=== PATIENT | female | born 1980 | race Caucasian/White ===

== ENCOUNTER 2020-11-25 13:00 | Emergency (ER) | payer OTHER, MEDICAID, SELFPAY ==
[2020-11-25] VITALS (9 sets, daily range): BP systolic 117–162; BP diastolic 66–113; PULSE 91–126; RESP 12–36; O2SAT 95–98; BMI 22.8
--- NOTE | 2020-11-25 13:12 | DI.RAD.S_ITS ---
PROCEDURE: XR CHEST 1V INDICATIONS: chest pain TECHNIQUE: One view of the chest was acquired. COMPARISON: None. FINDINGS: Surgical changes and devices: None. Lungs and pleura: On this semiupright portable chest examination, no large pneumothorax or large pleural effusions are seen. No focal infiltrates are seen. Mediastinum: Mediastinal contours appear normal. Heart size is normal. Bones and chest wall: No suspicious bony lesions. Overlying soft tissues appear unremarkable. IMPRESSION: Portable chest within normal limits. Dictated by: Mike De León M.D. on 11/25/2020 at 13:08 Approved by: Mike De León M.D. on 11/25/2020 at 13:09
--- NOTE | 2020-11-25 13:24 | ED_ITS ---
HPI - Chest Pain General Chief Complaint: Chest Pain Stated Complaint: Chest Pain/SOB/Back Pain Time Seen by Provider: 11/25/20 13:14 Source: patient Mode of arrival: Ambulatory Limitations: no limitations History of Present Illness HPI narrative: Patient is a 40-year-old female with no off known medical history presenting with ongoing shortness of breath fatigue and back pain. She says actually started back in August she thought she was on her menses and having a bad migraine and nausea however it has progressed to where she feels short of breath all the time at rest and with exertion she has some back pain as well. She feels overly run down and fatigued. She denies any cough. If she has no known history of blood clots she has not traveled anywhere. She had a Implanon implanted in October thinking that that may help her symptoms. She says it has just been ongoing and she does not feel well. She is noted to be hypertensive and tachycardic. MD complaint: chest pain Onset (ago): month(s) Pain location: left chest Quality: heaviness Exacerbating factors: exertion Related Data Previous Rx's Medication Instructions Recorded levothyroxine 75 mcg PO DAILY #30 cap 11/25/20 Allergies Allergy/AdvReac Type Severity Reaction Status Date / Time sulfamethoxazole Allergy Severe Anaphylaxis Verified 11/25/20 13:09 [From Bactrim] trimethoprim [From Bactrim] Allergy Severe Anaphylaxis Verified 11/25/20 13:09 Review of Systems Review of Systems ROS Unobtainable: All systems reviewed & are unremarkable except as noted in HPI and below Constitutional Constitutional: Denies chills, Reports fatigue, Denies fever(s) and Denies frequent falls ENT Ears, Nose, Mouth, and Throat: Denies change in voice, Denies vertigo, Denies dizziness, Denies neck pain and Denies sore throat Cardiovascular Cardiovascular: Reports chest pain, Reports rapid heart rate, Reports dyspnea and Reports dyspnea on exertion Respiratory Respiratory: Reports as per HPI, Reports dyspnea and Reports dyspnea on exertion Gastrointestinal Gastrointestinal: Denies abdominal pain, Denies change in bowel habits, Denies diarrhea, Denies nausea and Denies vomiting Genitourinary Genitourinary: Denies urinary hesitancy, Denies urinary incontinence and Denies urinary urgency Genitourinary: Denies urinary incontinence, Denies urinary hesitancy and Denies urinary urgency Musculoskeletal Musculoskeletal: Denies back pain and Denies neck pain Integumentary/Breasts Skin/Breast: Denies pruritus, Denies erythema, Denies rash and Denies wounds Neurologic Neurologic: Denies vertigo, Denies dizziness and Denies frequent falls Endocrine Endocrine: Reports fatigue Patient History Medical History Patient denies medical problems Social History Smoking Status: Former smoker Smoking Status: Former smoker alcohol intake frequency: 0-2 drinks per day Substance Use Type: does not use Exam Initial Vital Signs Initial Vital Signs: Vital Signs Pulse Rate 126 H 11/25/20 13:05 Respiratory Rate 24 11/25/20 13:05 Blood Pressure 162/113 H 11/25/20 13:05 Pulse Oximetry 95 11/25/20 13:05 GENERAL: Well-appearing, well-nourished and in no acute distress. HEENT: Head atraumatic,EOMI, pupils reactive, face symmetric, moist mucous membranes CARDIOVASCULAR: Tachycardic regular no murmur RESPIRATORY: Breath sounds equal bilaterally, no wheezes rales or rhonchi. ABDOMEN: Soft, nontender. Normoactive bowel sounds all 4 quadrants. No guarding or rebound. EXTREMITIES: Normal range of motion, no clubbing or edema. Neurovascularly intact NEUROLOGICAL: Alert and oriented x4.Normal gait and speech. Cranial nerves II through XII grossly intact. SKIN: Warm, dry, no laceration, no petechiae, no rashes or lesions. Course Orders Ordered: ED Orders 11/25/20 13:12 XR chest 1V Stat 11/25/20 13:14 EKG-12 Lead Stat 11/25/20 13:24 COVID19 Stat Complete Blood Count AUTO DIFF Stat Comprehensive Metabolic Panel Stat Free T4, Direct Thyroxine Stat Lipase Stat Magnesium Stat Partial Thromboplastin Time Stat Prothrombin Time INR Stat TSH w/ Reflex to FT4 Stat Troponin & CK Cardiac Panel Stat 11/25/20 14:15 CT angio chest PE protocol Stat Discontinued Medications Sodium Chloride (Normal Saline 0.9%) 1,000 mls @ 1,000 mls/hr IV BOLUS ONE Stop: 11/25/20 15:14 Last Infusion: 11/25/20 15:24 Dose: 0 mls/hr Documented by: Admin: 11/25/20 14:20 Dose: 1,000 mls/hr Documented by: PIERO Vital Signs Vital signs: Vital Signs - 8 hr 11/25/20 13:05 11/25/20 13:26 11/25/20 13:29 Pulse Rate 126 H 103 H 120 H Respiratory Rate 24 36 H Blood Pressure 162/113 H 138/66 Pulse Oximetry 95 95 97 11/25/20 13:30 11/25/20 14:00 11/25/20 14:30 Pulse Rate 100 H 110 H 91 H Respiratory Rate 12 26 H Blood Pressure 142/71 H Pulse Oximetry 97 98 97 11/25/20 14:57 11/25/20 15:00 11/25/20 15:30 Pulse Rate 104 H 98 H 98 H Respiratory Rate 23 18 17 Blood Pressure 126/77 123/78 117/69 Pulse Oximetry 96 96 95 MDM - Chest Pain Lab Data Attestation: I reviewed the patient's lab results. Result diagrams: 11/25/20 13:24 11/25/20 13:24 Labs: Lab Results 11/25/20 11/25/20 11/25/20 Range/Units 13:24 13:24 13:24 WBC 7.1 (4.5-11.0) X10^3/uL RBC 4.73 (4.0-5.2) X10^6/uL Hgb 14.8 (12.0-16.0) g/dL Hct 44.7 (36-46) % MCV 94.6 (80-100) fL MCH 31.3 (26-34) PG MCHC 33.1 (30-36) % RDW 13.3 (11.6-14.8) % Plt Count 270 (150-400) X10^3/uL Neut % (Auto) 40.6 L (50-75) % Lymph % (Auto) 41.3 H (25-40) % [place] % (Auto) 8.3 (3-14) % Eos % (Auto) 9.1 H (2-4) % Baso % (Auto) 0.7 (0-2) % Neut # (Auto) 2900 (8917-1568) /uL Lymph # (Auto) 2900 (2926-7880) /uL [place] # (Auto) 600 (0-900) /uL Eos # (Auto) 600 H (0-450) /uL Baso # (Auto) 0 (0-100) /uL PT 11.7 (10.1-12.7) SECONDS INR 1.0 (0.9-1.3) APTT 34 (26.4-36.2) SECONDS Sodium 140 (137-145) mmol/L Potassium 4.0 (3.4-5.1) mmol/L Chloride 106 (98-107) mmol/L Carbon Dioxide 18 L (22-32) mmol/L BUN 8 (7-17) mg/dL Creatinine 0.50 L (0.52-1.04) mg/dL Estimated GFR > 60.0 (>60) mL/min BUN/Creatinine Ratio 16.0 (6-22) Glucose 81 (70-100) mg/dL Calcium 9.0 (8.4-10.2) mg/dL Magnesium 2.1 (1.6-2.3) mg/dL Total Bilirubin 0.7 (0.2-1.3) mg/dL AST 103 H (14-36) IU/L ALT 93 H (<35) IU/L Alkaline Phosphatase 60 (38-126) U/L Total Creatine Kinase 82 (30-135) U/L CK-MB (CK-2) TNP CK-MB (CK-2) Rel Index TNP Troponin I < 0.012 (0.01-0.034) ng/mL Total Protein 8.1 (6.3-8.2) g/dL Albumin 5.1 H (3.5-5.0) g/dL Globulin 3.0 (1.7-4.1) g/dL Albumin/Globulin Ratio 1.7 (1.0-2.8) Lipase 169 (23-300) U/L TSH (0.47-4.68) uIU/mL Free T4 (0.78-2.19) ng/dL SARS-CoV-2 (PCR) (Negative) 11/25/20 11/25/20 Range/Units 13:24 13:24 WBC (4.5-11.0) X10^3/uL RBC (4.0-5.2) X10^6/uL Hgb (12.0-16.0) g/dL Hct (36-46) % MCV (80-100) fL MCH (26-34) PG MCHC (30-36) % RDW (11.6-14.8) % Plt Count (150-400) X10^3/uL Neut % (Auto) (50-75) % Lymph % (Auto) (25-40) % [place] % (Auto) (3-14) % Eos % (Auto) (2-4) % Baso % (Auto) (0-2) % Neut # (Auto) (3479-7719) /uL Lymph # (Auto) (9586-4673) /uL [place] # (Auto) (0-900) /uL Eos # (Auto) (0-450) /uL Baso # (Auto) (0-100) /uL PT (10.1-12.7) SECONDS INR (0.9-1.3) APTT (26.4-36.2) SECONDS Sodium (137-145) mmol/L Potassium (3.4-5.1) mmol/L Chloride (98-107) mmol/L Carbon Dioxide (22-32) mmol/L BUN (7-17) mg/dL Creatinine (0.52-1.04) mg/dL Estimated GFR (>60) mL/min BUN/Creatinine Ratio (6-22) Glucose (70-100) mg/dL Calcium (8.4-10.2) mg/dL Magnesium (1.6-2.3) mg/dL Total Bilirubin (0.2-1.3) mg/dL AST (14-36) IU/L ALT (<35) IU/L Alkaline Phosphatase (38-126) U/L Total Creatine Kinase (30-135) U/L CK-MB (CK-2) CK-MB (CK-2) Rel Index Troponin I (0.01-0.034) ng/mL Total Protein (6.3-8.2) g/dL Albumin (3.5-5.0) g/dL Globulin (1.7-4.1) g/dL Albumin/Globulin Ratio (1.0-2.8) Lipase (23-300) U/L TSH 5.09 H (0.47-4.68) uIU/mL Free T4 1.00 (0.78-2.19) ng/dL SARS-CoV-2 (PCR) Negative (Negative) Point of Care Testing Test Results Negative Urine Dip Bedside Urine Glucose Negative Bedside Urine Bilirubin - Negative Bedside Urine Ketone - Negative Urine Specific [place] 1.010 Bedside Urine Occult Blood - Negative Bedside Urine pH 6.0 Bedside Urine Protein - Negative Bedside Urine Urobilinogen - Negative Bedside Urine Nitrite - Negative Bedside Urine Leukocytes - Negative Esterase Imaging Data Chest x-ray: Radiologist's Impression: PROCEDURE: XR CHEST 1V INDICATIONS: chest pain TECHNIQUE: One view of the chest was acquired. COMPARISON: None. FINDINGS: Surgical changes and devices: None. Lungs and pleura: On this semiupright portable chest examination, no large pneumothorax or large pleural effusions are seen. No focal infiltrates are seen. Mediastinum: Mediastinal contours appear normal. Heart size is normal. Bones and chest wall: No suspicious bony lesions. Overlying soft tissues appear unremarkable. IMPRESSION: Portable chest within normal limits. Dictated by: Mike De León M.D. on 11/25/2020 at 13:08 CT scan - chest: Radiologist's Impression: PROCEDURE: CT ANGIO CHEST PE PROTOCOL INDICATIONS: short of breath tachycardic TECHNIQUE: After the administration of intravenous contrast, 2 mm thick sections acquired from the pulmonary apices to the posterior costophrenic angles. 3-dimensional maximum intensity projection (MIP) coronal and sagittal reformats were then acquired through the thorax. For radiation dose reduction, the following was used: automated exposure control, adjustment of mA and/or kV according to patient size. COMPARISON: [facility], , XR CHEST 1V, 11/25/2020, 13:57. FINDINGS: Image quality: Excellent. Pulmonary arteries: Pulmonary arteries are normal in size, and demonstrate no intraluminal filling defects to suggest central pulmonary embolism. Lungs and pleura: Lungs are clear. No pleural effusions or pneumothorax. Central and peripheral airways are patent. Mediastinum: Heart size is normal, without pericardial effusion. No mediastinal or hilar adenopathy. Thoracic aorta is normal in caliber and enhancement. No findings of dissection are seen. Esophagus is normal in caliber. There is a small hiatal hernia. Bones and chest wall: No suspicious bony lesions. Ribs and thoracic spine appear intact throughout. Thyroid gland demonstrates no significant abnormality. No axillary or supraclavicular adenopathy. Abdomen: Diffuse fatty liver infiltration is noted. Visualized upper abdominal solid organs otherwise appear normal in the early arterial phase of enhancement. IMPRESSION: Negative for pulmonary embolism. Thoracic aortic dissection cannot be seen. Incidental note is made of: Small hiatal hernia Fatty liver infiltration Dictated by: Mike De León M.D. on 11/25/2020 at 14:20 ECG Data Attestation: I personally reviewed and interpreted this ECG as follows: Prior ECG tracings: not available for review Interpretation: Artifact noted sinus rhythm rate [address] changes MDM Narrative Medical decision making narrative: Patient having shortness of breath and tachycardia concern for possible PE. CT is negative. Patient is found to have elevated TSH of 5. He has had ongoing fatigue for a few months she has had hair loss. This seems to be hypothyroid. She did see a provider via [facility] [employer] at Jan. I discussed with her about starting medications from the ED versus waiting to see her PCP who will be managing this. At this time she chooses to start treatment now she understands that her primary will need to recheck labs on it is imperative for her to follow-up. Discharge Plan Departure Patient Disposition: Home Clinical Impression: Hypothyroid Qualifiers: Hypothyroidism type: unspecified Qualified Code(s): E03.9 - Hypothyroidism, unspecified Instructions: Hypothyroidism Activity Restrictions/Additional Instructions: *You have been diagnosed with hypothyroid *What to do: Your thyroid is out of whack and not working properly which is likely causing her ongoing fatigue. You will need on going blood work in management so it is imperative that he follow up with her primary care provider *Continue to take medications as directed Levothyroxine 75 micro g once daily. Take 1st thing in the morning on an empty stomach with full glass of water *Follow up with your primary care provider in 2-3 days *Return to ER if you should have increasing fatigue, shortness of breath, fever or any new, worsening or concerning symptoms Prescriptions: New levothyroxine 75 mcg capsule 75 mcg PO DAILY Qty: 30 RF: 0
[2020-11-25 13:44] LABS: Prothrombin Time 11.7 SECONDS (10.1-12.7)
[2020-11-25 13:45] LABS: Add Manual Diff / Slide Review NO; Basophils Absolute Auto 0 /uL (0-100); Basophils Percent Auto 0.7 % (0-2); Eosinophils Absolute Auto 600 /uL (0-450); Eosinophils Percent Auto 9.1 % (2-4); Hematocrit 44.7 % (36-46); Hemoglobin 14.8 g/dL (12.0-16.0); Lymphocytes Absolute Auto 2900 /uL (1100-4500); Lymphocytes Percent Auto 41.3 % (25-40); Mean Corpuscular HGB Conc 33.1 % (30-36); Mean Corpuscular Hemoglobin 31.3 PG (26-34); Mean Corpuscular Volume 94.6 fL (80-100); Monocytes Absolute Auto 600 /uL (0-900); Monocytes Percent Auto 8.3 % (3-14); Neutrophils Absolute Auto 2900 /uL (1500-7000); Neutrophils Percent Auto 40.6 % (50-75); Platelet Count 270 X10^3/uL (150-400); Red Blood Cell Count 4.73 X10^6/uL (4.0-5.2); Red Cell Distribution Width 13.3 % (11.6-14.8); White Blood Cell Count 7.1 X10^3/uL (4.5-11.0)
[2020-11-25 13:46] LABS: PTT Partial Thromboplastin Tim 34 SECONDS (26.4-36.2)
[2020-11-25 13:49] LABS: Alanine Aminotransferase 93 IU/L (<35); Albumin 5.1 g/dL (3.5-5.0); Albumin Globulin Ratio 1.7 (1.0-2.8); Alkaline Phosphatase 60 U/L (38-126); Aspartate Aminotransferase 103 IU/L (14-36); Bilirubin Total 0.7 mg/dL (0.2-1.3); Blood Urea Nitrogen 8 mg/dL (7-17); Carbon Dioxide 18 mmol/L (22-32); Chloride 106 mmol/L (98-107); Creatine Kinase 82 U/L (30-135); Estimated Glomerular Filt Rate > 60.0 mL/min (>60); Glucose 81 mg/dL (70-100); HEMOLYSIS < 15 (0-50); Lipase 169 U/L (23-300); Magnesium 2.1 mg/dL (1.6-2.3); Sodium 140 mmol/L (137-145); Total Protein 8.1 g/dL (6.3-8.2)
[2020-11-25 13:54] LABS: COVID19 -Nasal RAPID Negative (Negative)
[2020-11-25 14:00] LABS: Troponin I < 0.012 ng/mL (0.01-0.034)
--- NOTE | 2020-11-25 14:15 | DI.CT.S_ITS ---
PROCEDURE: CT ANGIO CHEST PE PROTOCOL INDICATIONS: short of breath tachycardic TECHNIQUE: After the administration of intravenous contrast, 2 mm thick sections acquired from the pulmonary apices to the posterior costophrenic angles. 3-dimensional maximum intensity projection (MIP) coronal and sagittal reformats were then acquired through the thorax. For radiation dose reduction, the following was used: automated exposure control, adjustment of mA and/or kV according to patient size. COMPARISON: [facility], CR, XR CHEST 1V, 11/25/2020, 13:57. FINDINGS: Image quality: Excellent. Pulmonary arteries: Pulmonary arteries are normal in size, and demonstrate no intraluminal filling defects to suggest central pulmonary embolism. Lungs and pleura: Lungs are clear. No pleural effusions or pneumothorax. Central and peripheral airways are patent. Mediastinum: Heart size is normal, without pericardial effusion. No mediastinal or hilar adenopathy. Thoracic aorta is normal in caliber and enhancement. No findings of dissection are seen. Esophagus is normal in caliber. There is a small hiatal hernia. Bones and chest wall: No suspicious bony lesions. Ribs and thoracic spine appear intact throughout. Thyroid gland demonstrates no significant abnormality. No axillary or supraclavicular adenopathy. Abdomen: Diffuse fatty liver infiltration is noted. Visualized upper abdominal solid organs otherwise appear normal in the early arterial phase of enhancement. IMPRESSION: Negative for pulmonary embolism. Thoracic aortic dissection cannot be seen. Incidental note is made of: Small hiatal hernia Fatty liver infiltration Dictated by: Mike De León M.D. on 11/25/2020 at 14:20 Approved by: Mike De León M.D. on 11/25/2020 at 14:22
[2020-11-25] MEDS: SODIUM CHLORIDE 0.9% 1,000 ML 1000 ML IV (14:20)
[2020-11-25 14:32] LABS: TSH w/ Reflex to FT4 5.09 uIU/mL (0.47-4.68)
== END 2020-11-25 16:11 | disposition home or self-care (01) ==
PROVIDERS: Emergency Provider Emergency Medicine
DX: E03.9 Hypothyroidism, unspecified (principal); R07.9 Chest pain, unspecified; I10 Essential (primary) hypertension; R00.0 Tachycardia, unspecified; R06.02 Shortness of breath; Z20.822 Contact with and (suspected) exposure to COVID-19
CPT/HCPCS: 36415; 71045; 71275; 80053; 81003; 81025; 82550; 83690; 83735; 84439; 84443; 84484; 85025; 85610; 85730; 87635; 93005; 93010; 96360; 99284; C9803

== ENCOUNTER → 2021-05-15 09:00 | Outpatient (CLI) | payer OTHER, MEDICAID, SELFPAY ==
[2021-05-15 10:29] LABS: COVID19 -Nasal RAPID Negative (Negative)
== END ==
PROVIDERS: PCP Nurse Practitioner Family; Referring Provider Internal Medicine; Visit Provider Internal Medicine
DX: Z20.822 Contact with and (suspected) exposure to COVID-19 (principal)
CPT/HCPCS: 87635; C9803

== ENCOUNTER → 2021-05-15 09:02 | Outpatient (CLI) | payer OTHER, MEDICAID, SELFPAY ==
--- NOTE | 2021-05-21 09:43 | PM.PFT.1 ---
Pulmonary Function Test Referral & Results Date Patient Seen: 05/15/21 Requesting provider: Dennis Kyle Indication: Shortness of breath Results: The spirometry demonstrates an FVC of 3.71 L which is 106% of predicted. The FEV1 was measured at 3.06 L which is 107% of predicted. The FEV1/FVC ratio was 83 which is 99% of predicted. Following the administration of bronchodilator there was no change. Lung volumes show an SVC of 3.65 L which is 110% of predicted. The diffusing capacity was measured at 25.20 which is 116% of predicted. The maximum voluntary ventilation was normal Interpretation: This study demonstrates normal pulmonary function
== END ==
PROVIDERS: PCP Nurse Practitioner Family; Referring Provider Nurse Practitioner Family; Visit Provider Nurse Practitioner Family
DX: R06.02 Shortness of breath (principal); Z20.822 Contact with and (suspected) exposure to COVID-19
CPT/HCPCS: 87635; 94060; 94726; 94729; C9803

== ENCOUNTER → 2022-03-19 15:19 | Outpatient (CLI) | payer OTHER, MEDICAID, SELFPAY ==
[2022-03-19 16:31] LABS: Prothrombin Time 11.8 SECONDS (10.1-12.7)
[2022-03-19 16:54] LABS: Alanine Aminotransferase 73 IU/L (<35); Albumin 4.9 g/dL (3.5-5.0); Albumin Globulin Ratio 1.5 (1.0-2.8); Alkaline Phosphatase 61 U/L (38-126); Aspartate Aminotransferase 175 IU/L (14-36); BUN Creatinine Ratio 11.3 (6-22); Bilirubin Total 1.1 mg/dL (0.2-1.3); Blood Urea Nitrogen 6 mg/dL (7-17); Calcium 8.8 mg/dL (8.4-10.2); Carbon Dioxide 26 mmol/L (22-32); Chloride 102 mmol/L (98-107); Estimated Glomerular Filt Rate > 60 mL/min (>60); Globulin 3.3 g/dL (1.7-4.1); Glucose 90 mg/dL (70-100); HEMOLYSIS < 15 (0-50); Potassium 4.5 mmol/L (3.4-5.1); Sodium 141 mmol/L (137-145); Total Protein 8.2 g/dL (6.3-8.2)
[2022-03-19 17:11] LABS: Add Manual Diff / Slide Review NO; Basophils Absolute Auto 100 /uL (0-100); Basophils Percent Auto 2.4 % (0-2); Eosinophils Absolute Auto 200 /uL (0-450); Eosinophils Percent Auto 6.9 % (2-4); Hematocrit 40.7 % (36-46); Lymphocytes Absolute Auto 1100 /uL (1100-4500); Lymphocytes Percent Auto 35.9 % (25-40); Mean Corpuscular HGB Conc 34.3 % (30-36); Mean Corpuscular Hemoglobin 33.8 PG (26-34); Mean Corpuscular Volume 98.5 fL (80-100); Monocytes Absolute Auto 300 /uL (0-900); Monocytes Percent Auto 11.5 % (3-14); Neutrophils Absolute Auto 1300 /uL (1500-7000); Neutrophils Percent Auto 43.3 % (50-75); Platelet Count 151 X10^3/uL (150-400); Red Blood Cell Count 4.13 X10^6/uL (4.0-5.2); Red Cell Distribution Width 13.7 % (11.6-14.8)
[2022-03-19 19:55] LABS: Free T3, Triiodothyronine Free 3.84 pg/mL (2.77-5.27); Free T4, Direct Thyroxine 0.86 ng/dL (0.78-2.19)
[2022-03-19 20:09] LABS: Thyroid Stimulating Hormone 2.32 uIU/mL (0.47-4.68)
== END ==
PROVIDERS: PCP Family Medicine; Referring Provider Family Medicine; Visit Provider Family Medicine
DX: E03.9 Hypothyroidism, unspecified (principal); E06.3 Autoimmune thyroiditis; R06.02 Shortness of breath; R25.1 Tremor, unspecified
CPT/HCPCS: 36415; 80053; 84439; 84443; 84481; 85025; 85610

== ENCOUNTER 2022-03-25 22:52 | Inpatient (IN) | payer OTHER, MEDICAID, SELFPAY ==
[2022-03-25 23:21] VITALS: BP 153/70; PULSE 97; RESP 18; TEMP 37.4; O2SAT 98
--- NOTE | 2022-03-25 23:30 | DI.US.S_ITS ---
PROCEDURE: US BREAST RT LIMITED COMPARISON: None. INDICATIONS: lump TECHNIQUE: Real-time sonographic evaluation performed of the right breast with image documentation. Color Doppler also performed for further evaluation. FINDINGS: Within the upper inner quadrant of the right breast, there is a reported bruise. In this region of palpable abnormality, there is an oval isoechoic subcutaneous mass lesion measuring approximately 1.8 x 0.9 x 2.0 cm at the 1 o'clock position 10 cm from the nipple. There is an adjacent small hypoechoic cyst measuring 0.3 x 0.2 x 0.4 cm. There is posterior acoustic enhancement. No definite internal mass. IMPRESSION: 1. Small isoechoic subcutaneous mass lesion demonstrated in the area of reported soft tissue bruise. The findings likely represent a region of fat necrosis or lipoma. Recommend short-term follow-up in 3-6 months to demonstrate stability or resolution. 2. Small simple appearing cyst demonstrated Dictated by: Suleiman Tesfaye M.D. on 03/26/2022 at 1:08 Approved by: Suleiman Tesfaye M.D. on 03/26/2022 at 1:13
[2022-03-25 23:42] LABS: Add Manual Diff / Slide Review NO; Basophils Absolute Auto 100 /uL (0-100); Basophils Percent Auto 3.5 % (0-2); Eosinophils Absolute Auto 100 /uL (0-450); Hematocrit 41.6 % (36-46); Hemoglobin 14.5 g/dL (12.0-16.0); Lymphocytes Absolute Auto 900 /uL (1100-4500); Lymphocytes Percent Auto 30.7 % (25-40); Mean Corpuscular HGB Conc 34.8 % (30-36); Mean Corpuscular Volume 97.7 fL (80-100); Monocytes Absolute Auto 300 /uL (0-900); Monocytes Percent Auto 8.7 % (3-14); Neutrophils Absolute Auto 1700 /uL (1500-7000); Neutrophils Percent Auto 55.1 % (50-75); Platelet Count 136 X10^3/uL (150-400); Red Blood Cell Count 4.26 X10^6/uL (4.0-5.2); Red Cell Distribution Width 13.7 % (11.6-14.8); White Blood Cell Count 3.1 X10^3/uL (4.5-11.0)
[2022-03-25 23:44] LABS: Prothrombin Time 11.3 SECONDS (10.1-12.7)
[2022-03-25 23:49] LABS: Alanine Aminotransferase 72 IU/L (<35); Albumin 5.1 g/dL (3.5-5.0); Albumin Globulin Ratio 1.6 (1.0-2.8); Alkaline Phosphatase 71 U/L (38-126); BUN Creatinine Ratio 16.1 (6-22); Bilirubin Total 1.2 mg/dL (0.2-1.3); Blood Urea Nitrogen 9 mg/dL (7-17); Calcium 8.8 mg/dL (8.4-10.2); Carbon Dioxide 21 mmol/L (22-32); Chloride 106 mmol/L (98-107); Estimated Glomerular Filt Rate > 60 mL/min (>60); Globulin 3.1 g/dL (1.7-4.1); Glucose 95 mg/dL (70-100); Sodium 144 mmol/L (137-145); Total Protein 8.2 g/dL (6.3-8.2)
[2022-03-25 23:52] LABS: HEMOLYSIS 54 (0-50)
[2022-03-25 23:53] LABS: Potassium 4.7 mmol/L (3.4-5.1)
[2022-03-25 23:54] LABS: Aspartate Aminotransferase 178 IU/L (14-36)
[2022-03-25 23:57] LABS: Lactate (Lactic Acid) 3.8 mmol/L (0.7-2.1)
[2022-03-26] VITALS (18 sets, daily range): BP systolic 106–141; BP diastolic 56–96; PULSE 78–97; RESP 14–24; TEMP 36.7–37; O2SAT 95–99; BMI 23.8
[2022-03-26 00:24] LABS: PTT Partial Thromboplastin Tim 35 SECONDS (26.4-36.2)
[2022-03-26 01:20] LABS: Thyroid Stimulating Hormone 2.58 uIU/mL (0.47-4.68)
[2022-03-26 01:30] LABS: Reflexed Lactate in 2 Hours Y
[2022-03-26] MEDS: SODIUM CHLORIDE 0.9% 1,769.01 ML 589.67 ML IV (01:36)
[2022-03-26 02:03] LABS: Lactate 2HR (Lactic Acid Rflx) 3.2 mmol/L (0.7-2.1)
--- NOTE | 2022-03-26 02:04 | ED.SKABFB ---
HPI - Skin/Abscess/Foreign Bdy General Chief complaint: Skin/Abscess/Foreign Body Stated complaint: lump in rt breast, neuropathy spreading bilat le's Time Seen by Provider: 03/25/22 23:59 Source: patient Mode of arrival: Ambulatory Limitations: no limitations History of Present Illness HPI narrative: Female who comes of complaint of feeling generally unwell. Patient has had chills, no objective fevers. She complains of chest pain and shortness of breath, she has had generalized weakness spreading of both legs and neuropathy type sensations in her lower extremities. She has noticed all lump on her chest she states she had some minor trauma caused bruising. Patient states she bruises very easily. She has had nausea but no vomiting. She has had poor appetite change in her taste for the past year and half. She describes weight loss. She states her bowel movements are about every 3 days apart but soft no dysuria, urgency frequency. She denies any abdominal, back or flank pain. She describes myalgias and joint aching. Patient does not have any neck pain or headache today. She denies dysuria, urgency or frequency. She reports being on methimazole at 1 point as well as levothyroxine it is unclear which she took 1st but she did not take them concurrently. She was never followed by endocrinology and this was reported to be ordered by her primary care physician. She states she was supposed to restart her methimazole this week but has not taken it. Patient was also on metoprolol 1.4 tremors. She had a 1 time Neurology consult and she was told she had an essential tremor. Patient denies tobacco, 1-2 alcoholic drinks nightly, denies illicit. Related Data Home Medications Medication Instructions Recorded Confirmed methimazole 5 mg tablet 5 mg PO DAILY 03/26/22 03/26/22 metoprolol tartrate 25 mg tablet 25 mg PO DAILY 03/26/22 03/26/22 Allergies Allergy/AdvReac Type Severity Reaction Status Date / Time sulfamethoxazole Allergy Severe Anaphylaxis Verified 03/25/22 23:24 [From Bactrim] trimethoprim [From Bactrim] Allergy Severe Anaphylaxis Verified 03/25/22 23:24 Review of Systems Review of Systems ROS Unobtainable: All systems reviewed & are unremarkable except as noted in HPI and below Patient History Medical History Acquired hypothyroidism Alcohol use Breast mass in female Elevated blood protein Elevated liver enzymes Fatty liver disease, nonalcoholic Duane's disease Patient denies medical problems Shortness of breath (08/2020) Tremors of nervous system (08/2020) Family History Father Diabetes mellitus Mother Cancer Grandfather Kidney failure Grandmother Cancer Social History household members: significant other and children Smoking Status: Former smoker second hand exposure: Yes alcohol intake: current substance use type: does not use Smoking Status: Former smoker alcohol intake frequency: a few times a week Alcohol type: beer Substance Use Type: does not use Exam Narrative Exam Narrative: GEN: Female, alert and oriented x 3, patient appears to be in mild distress. HEENT: Atraumatic, pupils are equal round reactive to light, extraocular movements are intact, nares are clear, moist mucous membranes. HEART: Regular rate and rhythm without murmur, clicks, rubs. Pulses are equal in upper and lower extremities LUNGS:Lungs clear to auscultation, no wheezes, rales, crackles, chest moves symmetrically, no tachypnea accessory muscle use. ABD:bowel sounds normal, soft, non-tender, no guarding, rebound, rigidity, no masses noted, no hepatosplenomegaly :No CVA tenderness MSCL: Non-tender,full range of motion NEURO:CN 2-12 intact, sensation normal SKIN: Patient does have ecchymosis on her right breast with a small area of fullness just underneath, this is approximately 4 x 5 cm. There is a small area of ecchymosis on the left breast as well. . Initial Vital Signs Initial Vital Signs: Vital Signs Temperature 99.3 F 03/25/22 23:21 Pulse Rate 97 H 03/25/22 23:21 Respiratory Rate 18 03/25/22 23:21 Blood Pressure 153/70 H 03/25/22 23:21 Pulse Oximetry 98 03/25/22 23:21 Course Orders Ordered: Acetaminophen (Acetaminophen 325 Mg Tablet) 650 mg PO Q6HR PRN PRN Reason: pain, fever Enoxaparin Sodium (Enoxaparin 40 Mg/0.4 Ml Syringe) 40 mg SUBCUT DAILY [facility] Last Admin: 03/26/22 11:21 Dose: Not Given Documented by: CHARO Folic Acid (Folic Acid 1 Mg Tablet) 1 mg PO DAILY [facility] Last Admin: 03/26/22 11:20 Dose: Not Given Documented by: CHARO Thiamine HCl 500 mg/ Sodium (Chloride) 105 mls @ 420 mls/hr IV TID [facility] Last Infusion: 03/26/22 20:52 Dose: 0 mls/hr Documented by: Admin: 03/26/22 20:37 Dose: 420 mls/hr Documented by: Infusion: 03/26/22 15:15 Dose: 420 mls/hr Documented by: Admin: 03/26/22 15:00 Dose: 420 mls/hr Documented by: CHARO Dextrose/Sodium Chloride (Dextrose 5%-0.9% Ns) 1,000 mls @ 100 mls/hr IV CONT [facility] Last Infusion: 03/27/22 02:22 Dose: 100 mls/hr Documented by: Admin: 03/27/22 02:22 Dose: 100 mls/hr Documented by: Infusion: 03/27/22 01:12 Dose: 100 mls/hr Documented by: Admin: 03/26/22 15:12 Dose: 100 mls/hr Documented by: Infusion: 03/26/22 15:12 Dose: 100 mls/hr Documented by: Admin: 03/26/22 06:35 Dose: 100 mls/hr Documented by: SILKE Lorazepam (Lorazepam 2 Mg/Ml Inj) 0 mg IV CIWAPRN PRN; Protocol PRN Reason: Alcohol Withdrawal Last Admin: 03/26/22 14:52 Dose: 2 mg Documented by: CHARO Lorazepam (Lorazepam 1 Mg Tablet) 0 mg PO CIWAPRN PRN; Protocol PRN Reason: Alcohol Withdrawal Multivitamins (Multivitamin 1 Tablet) 1 tab PO DAILY [facility] Last Admin: 03/26/22 11:20 Dose: Not Given Documented by: CHARO Naloxone HCl (Naloxone 0.4 Mg/Ml Vial) 0.2 mg IV Q2MIN PRN PRN Reason: Opiate Reversal Home Medication (Storage) 0 each PO PRN PRN PRN Reason: HOME MEDICATION STORAGE Ondansetron HCl (Ondansetron 4 Mg/2 Ml Inj) 4 mg IV Q8HR PRN PRN Reason: Nausea And Vomiting Last Admin: 03/26/22 21:09 Dose: 4 mg Documented by: Admin: 03/26/22 11:00 Dose: 4 mg Documented by: CHARO Discontinued Medications Sodium Chloride (Normal Saline 0.9%) 1,769.01 mls @ 589.67 mls/hr 30 ml/kg infuse over 3 hr (1769.01 ml) IV NOW ONE Stop: 03/26/22 02:58 Last Infusion: 03/26/22 05:36 Dose: 0 mls/hr Documented by: Admin: 03/26/22 01:36 Dose: 589.67 mls/hr Documented by: TOÑITO Piperacillin Sod/Tazobactam (Sod 4.5 gm/ Sodium Chloride) 100 mls @ 200 mls/hr IV NOW ONE Stop: 03/26/22 02:33 Last Infusion: 03/26/22 04:32 Dose: 0 mls/hr Documented by: Admin: 03/26/22 02:51 Dose: 200 mls/hr Documented by: HUGO Thiamine HCl 500 mg/ Sodium (Chloride) 105 mls @ 420 mls/hr IV NOW ONE Stop: 03/26/22 05:16 Last Infusion: 03/26/22 06:15 Dose: 0 mls/hr Documented by: Admin: 03/26/22 05:58 Dose: 420 mls/hr Documented by: HUGO Phenobarbital (Phenobarbital 65 Mg/Ml Vial) 130 mg IV NOW ONE Stop: 03/26/22 05:37 Last Admin: 03/26/22 05:54 Dose: 130 mg Documented by: HUGO Vital Signs Vital signs: Vital Signs - 8 hr 03/25/22 23:21 Temperature 99.3 F Pulse Rate 97 H Respiratory Rate 18 Blood Pressure 153/70 H Pulse Oximetry 98 MDM - Skin/Abscess/Foreign Bdy Lab Data Result diagrams: 03/25/22 23:20 03/25/22 23:20 Labs: Lab Results 03/25/22 03/25/22 03/25/22 Range/Units 23:20 23:20 23:20 WBC 3.1 L (4.5-11.0) X10^3/uL RBC 4.26 (4.0-5.2) X10^6/uL Hgb 14.5 (12.0-16.0) g/dL Hct 41.6 (36-46) % MCV 97.7 (80-100) fL MCH 34.0 (26-34) PG MCHC 34.8 (30-36) % RDW 13.7 (11.6-14.8) % Plt Count 136 L (150-400) X10^3/uL Neut % (Auto) 55.1 (50-75) % Lymph % (Auto) 30.7 (25-40) % Meeker % (Auto) 8.7 (3-14) % Eos % (Auto) 2.0 (2-4) % Baso % (Auto) 3.5 H (0-2) % Neut # (Auto) 1700 (8810-7754) /uL Lymph # (Auto) 900 L (2998-2083) /uL Meeker # (Auto) 300 (0-900) /uL Eos # (Auto) 100 (0-450) /uL Baso # (Auto) 100 (0-100) /uL PT (10.1-12.7) SECONDS INR (0.9-1.3) APTT (26.4-36.2) SECONDS Sodium 144 (137-145) mmol/L Potassium 4.7 (3.4-5.1) mmol/L Chloride 106 (98-107) mmol/L Carbon Dioxide 21 L (22-32) mmol/L BUN 9 (7-17) mg/dL Creatinine 0.56 (0.52-1.04) mg/dL Estimated GFR > 60 (>60) mL/min BUN/Creatinine Ratio 16.1 (6-22) Glucose 95 (70-100) mg/dL Lactate 3.8 H (0.7-2.1) mmol/L Calcium 8.8 (8.4-10.2) mg/dL Total Bilirubin 1.2 (0.2-1.3) mg/dL AST 178 H (14-36) IU/L ALT 72 H (<35) IU/L Alkaline Phosphatase 71 (38-126) U/L Total Protein 8.2 (6.3-8.2) g/dL Albumin 5.1 H (3.5-5.0) g/dL Globulin 3.1 (1.7-4.1) g/dL Albumin/Globulin Ratio 1.6 (1.0-2.8) Lipase (23-300) U/L Procalcitonin (<0.5) ng/mL TSH (0.47-4.68) uIU/mL Urine Color Urine Appearance Urine pH (4.5-8.0) Ur Specific Jefferson (1.000-1.035) Urine Protein (Negative) Urine Glucose (UA) (Negative) g/dL Urine Ketones (NEGATIVE) Urine Occult Blood (Negative) Urine Nitrate (Negative) Urine Bilirubin (NEGATIVE) Urine Urobilinogen (0.2) E.U./dL Ur Leukocyte Esterase (NEGATIVE) Urine RBC (0-5/HPF) Urine WBC (0-5/HPF) Urine Bacteria (None) Hyaline Casts (None) Ur Culture Indicated? U Opiates 300ng/mL cut (Negative) Ur Oxycodone Screen (Negative) Urine Methadone Screen (Negative) Ur Barbiturates Screen (Negative) U Tricyclic Antidepress (Negative) Ur Phencyclidine Scrn (Negative) Ur Amphetamines Screen (Negative) U Methamphetamines Scrn (Negative) Ur MDMA Scrn (Ecstasy) (Negative) U Benzodiazepines Scrn (Negative) Urine Cocaine Screen (Negative) U Marijuana (THC) Screen (Negative) Ethyl Alcohol ( - 10) mg/dL SARS-CoV-2 (PCR) (Negative) 03/25/22 03/25/22 03/25/22 Range/Units 23:20 23:30 23:30 WBC (4.5-11.0) X10^3/uL RBC (4.0-5.2) X10^6/uL Hgb (12.0-16.0) g/dL Hct (36-46) % MCV (80-100) fL MCH (26-34) PG MCHC (30-36) % RDW (11.6-14.8) % Plt Count (150-400) X10^3/uL Neut % (Auto) (50-75) % Lymph % (Auto) (25-40) % Meeker % (Auto) (3-14) % Eos % (Auto) (2-4) % Baso % (Auto) (0-2) % Neut # (Auto) (3095-5482) /uL Lymph # (Auto) (4789-7349) /uL Meeker # (Auto) (0-900) /uL Eos # (Auto) (0-450) /uL Baso # (Auto) (0-100) /uL PT 11.3 (10.1-12.7) SECONDS INR 1.0 (0.9-1.3) APTT 35 (26.4-36.2) SECONDS Sodium (137-145) mmol/L Potassium (3.4-5.1) mmol/L Chloride (98-107) mmol/L Carbon Dioxide (22-32) mmol/L BUN (7-17) mg/dL Creatinine (0.52-1.04) mg/dL Estimated GFR (>60) mL/min BUN/Creatinine Ratio (6-22) Glucose (70-100) mg/dL Lactate (0.7-2.1) mmol/L Calcium (8.4-10.2) mg/dL Total Bilirubin (0.2-1.3) mg/dL AST (14-36) IU/L ALT (<35) IU/L Alkaline Phosphatase (38-126) U/L Total Protein (6.3-8.2) g/dL Albumin (3.5-5.0) g/dL Globulin (1.7-4.1) g/dL Albumin/Globulin Ratio (1.0-2.8) Lipase (23-300) U/L Procalcitonin (<0.5) ng/mL TSH 2.58 (0.47-4.68) uIU/mL Urine Color Urine Appearance Urine pH (4.5-8.0) Ur Specific Jefferson (1.000-1.035) Urine Protein (Negative) Urine Glucose (UA) (Negative) g/dL Urine Ketones (NEGATIVE) Urine Occult Blood (Negative) Urine Nitrate (Negative) Urine Bilirubin (NEGATIVE) Urine Urobilinogen (0.2) E.U./dL Ur Leukocyte Esterase (NEGATIVE) Urine RBC (0-5/HPF) Urine WBC (0-5/HPF) Urine Bacteria (None) Hyaline Casts (None) Ur Culture Indicated? U Opiates 300ng/mL cut (Negative) Ur Oxycodone Screen (Negative) Urine Methadone Screen (Negative) Ur Barbiturates Screen (Negative) U Tricyclic Antidepress (Negative) Ur Phencyclidine Scrn (Negative) Ur Amphetamines Screen (Negative) U Methamphetamines Scrn (Negative) Ur MDMA Scrn (Ecstasy) (Negative) U Benzodiazepines Scrn (Negative) Urine Cocaine Screen (Negative) U Marijuana (THC) Screen (Negative) Ethyl Alcohol ( - 10) mg/dL SARS-CoV-2 (PCR) (Negative) 03/26/22 03/26/22 03/26/22 Range/Units 01:45 01:45 01:45 WBC (4.5-11.0) X10^3/uL RBC (4.0-5.2) X10^6/uL Hgb (12.0-16.0) g/dL Hct (36-46) % MCV (80-100) fL MCH (26-34) PG MCHC (30-36) % RDW (11.6-14.8) % Plt Count (150-400) X10^3/uL Neut % (Auto) (50-75) % Lymph % (Auto) (25-40) % Meeker % (Auto) (3-14) % Eos % (Auto) (2-4) % Baso % (Auto) (0-2) % Neut # (Auto) (6319-7661) /uL Lymph # (Auto) (2598-7819) /uL Meeker # (Auto) (0-900) /uL Eos # (Auto) (0-450) /uL Baso # (Auto) (0-100) /uL PT (10.1-12.7) SECONDS INR (0.9-1.3) APTT (26.4-36.2) SECONDS Sodium (137-145) mmol/L Potassium (3.4-5.1) mmol/L Chloride (98-107) mmol/L Carbon Dioxide (22-32) mmol/L BUN (7-17) mg/dL Creatinine (0.52-1.04) mg/dL Estimated GFR (>60) mL/min BUN/Creatinine Ratio (6-22) Glucose (70-100) mg/dL Lactate 3.2 H (0.7-2.1) mmol/L Calcium (8.4-10.2) mg/dL Total Bilirubin (0.2-1.3) mg/dL AST (14-36) IU/L ALT (<35) IU/L Alkaline Phosphatase (38-126) U/L Total Protein (6.3-8.2) g/dL Albumin (3.5-5.0) g/dL Globulin (1.7-4.1) g/dL Albumin/Globulin Ratio (1.0-2.8) Lipase 279 (23-300) U/L Procalcitonin 0.10 (<0.5) ng/mL TSH (0.47-4.68) uIU/mL Urine Color Urine Appearance Urine pH (4.5-8.0) Ur Specific Jefferson (1.000-1.035) Urine Protein (Negative) Urine Glucose (UA) (Negative) g/dL Urine Ketones (NEGATIVE) Urine Occult Blood (Negative) Urine Nitrate (Negative) Urine Bilirubin (NEGATIVE) Urine Urobilinogen (0.2) E.U./dL Ur Leukocyte Esterase (NEGATIVE) Urine RBC (0-5/HPF) Urine WBC (0-5/HPF) Urine Bacteria (None) Hyaline Casts (None) Ur Culture Indicated? U Opiates 300ng/mL cut (Negative) Ur Oxycodone Screen (Negative) Urine Methadone Screen (Negative) Ur Barbiturates Screen (Negative) U Tricyclic Antidepress (Negative) Ur Phencyclidine Scrn (Negative) Ur Amphetamines Screen (Negative) U Methamphetamines Scrn (Negative) Ur MDMA Scrn (Ecstasy) (Negative) U Benzodiazepines Scrn (Negative) Urine Cocaine Screen (Negative) U Marijuana (THC) Screen (Negative) Ethyl Alcohol 319 H ( - 10) mg/dL SARS-CoV-2 (PCR) (Negative) 03/26/22 03/26/22 03/26/22 Range/Units 02:00 03:10 03:10 WBC (4.5-11.0) X10^3/uL RBC (4.0-5.2) X10^6/uL Hgb (12.0-16.0) g/dL Hct (36-46) % MCV (80-100) fL MCH (26-34) PG MCHC (30-36) % RDW (11.6-14.8) % Plt Count (150-400) X10^3/uL Neut % (Auto) (50-75) % Lymph % (Auto) (25-40) % Meeker % (Auto) (3-14) % Eos % (Auto) (2-4) % Baso % (Auto) (0-2) % Neut # (Auto) (4914-1087) /uL Lymph # (Auto) (0005-9924) /uL Meeker # (Auto) (0-900) /uL Eos # (Auto) (0-450) /uL Baso # (Auto) (0-100) /uL PT (10.1-12.7) SECONDS INR (0.9-1.3) APTT (26.4-36.2) SECONDS Sodium (137-145) mmol/L Potassium (3.4-5.1) mmol/L Chloride (98-107) mmol/L Carbon Dioxide (22-32) mmol/L BUN (7-17) mg/dL Creatinine (0.52-1.04) mg/dL Estimated GFR (>60) mL/min BUN/Creatinine Ratio (6-22) Glucose (70-100) mg/dL Lactate (0.7-2.1) mmol/L Calcium (8.4-10.2) mg/dL Total Bilirubin (0.2-1.3) mg/dL AST (14-36) IU/L ALT (<35) IU/L Alkaline Phosphatase (38-126) U/L Total Protein (6.3-8.2) g/dL Albumin (3.5-5.0) g/dL Globulin (1.7-4.1) g/dL Albumin/Globulin Ratio (1.0-2.8) Lipase (23-300) U/L Procalcitonin (<0.5) ng/mL TSH (0.47-4.68) uIU/mL Urine Color Yellow Urine Appearance Clear Urine pH 5.5 (4.5-8.0) Ur Specific Jefferson 1.020 (1.000-1.035) Urine Protein Trace H (Negative) Urine Glucose (UA) Negative (Negative) g/dL Urine Ketones 1+ H (NEGATIVE) Urine Occult Blood Trace-lysed (Negative) Urine Nitrate Negative (Negative) Urine Bilirubin Negative (NEGATIVE) Urine Urobilinogen 1.0 (0.2) E.U./dL Ur Leukocyte Esterase Negative (NEGATIVE) Urine RBC None seen (0-5/HPF) Urine WBC None seen (0-5/HPF) Urine Bacteria None seen (None) Hyaline Casts 0-1/lpf (None) Ur Culture Indicated? Cult not indicated U Opiates 300ng/mL cut Negative (Negative) Ur Oxycodone Screen Negative (Negative) Urine Methadone Screen Negative (Negative) Ur Barbiturates Screen Negative (Negative) U Tricyclic Antidepress Negative (Negative) Ur Phencyclidine Scrn Negative (Negative) Ur Amphetamines Screen Negative (Negative) U Methamphetamines Scrn Negative (Negative) Ur MDMA Scrn (Ecstasy) Negative (Negative) U Benzodiazepines Scrn Negative (Negative) Urine Cocaine Screen Negative (Negative) U Marijuana (THC) Screen Negative (Negative) Ethyl Alcohol ( - 10) mg/dL SARS-CoV-2 (PCR) Negative (Negative) 03/26/22 Range/Units 04:25 WBC (4.5-11.0) X10^3/uL RBC (4.0-5.2) X10^6/uL Hgb (12.0-16.0) g/dL Hct (36-46) % MCV (80-100) fL MCH (26-34) PG MCHC (30-36) % RDW (11.6-14.8) % Plt Count (150-400) X10^3/uL Neut % (Auto) (50-75) % Lymph % (Auto) (25-40) % Meeker % (Auto) (3-14) % Eos % (Auto) (2-4) % Baso % (Auto) (0-2) % Neut # (Auto) (7594-7217) /uL Lymph # (Auto) (5941-6972) /uL Meeker # (Auto) (0-900) /uL Eos # (Auto) (0-450) /uL Baso # (Auto) (0-100) /uL PT (10.1-12.7) SECONDS INR (0.9-1.3) APTT (26.4-36.2) SECONDS Sodium (137-145) mmol/L Potassium (3.4-5.1) mmol/L Chloride (98-107) mmol/L Carbon Dioxide (22-32) mmol/L BUN (7-17) mg/dL Creatinine (0.52-1.04) mg/dL Estimated GFR (>60) mL/min BUN/Creatinine Ratio (6-22) Glucose (70-100) mg/dL Lactate 3.1 H (0.7-2.1) mmol/L Calcium (8.4-10.2) mg/dL Total Bilirubin (0.2-1.3) mg/dL AST (14-36) IU/L ALT (<35) IU/L Alkaline Phosphatase (38-126) U/L Total Protein (6.3-8.2) g/dL Albumin (3.5-5.0) g/dL Globulin (1.7-4.1) g/dL Albumin/Globulin Ratio (1.0-2.8) Lipase (23-300) U/L Procalcitonin (<0.5) ng/mL TSH (0.47-4.68) uIU/mL Urine Color Urine Appearance Urine pH (4.5-8.0) Ur Specific Jefferson (1.000-1.035) Urine Protein (Negative) Urine Glucose (UA) (Negative) g/dL Urine Ketones (NEGATIVE) Urine Occult Blood (Negative) Urine Nitrate (Negative) Urine Bilirubin (NEGATIVE) Urine Urobilinogen (0.2) E.U./dL Ur Leukocyte Esterase (NEGATIVE) Urine RBC (0-5/HPF) Urine WBC (0-5/HPF) Urine Bacteria (None) Hyaline Casts (None) Ur Culture Indicated? U Opiates 300ng/mL cut (Negative) Ur Oxycodone Screen (Negative) Urine Methadone Screen (Negative) Ur Barbiturates Screen (Negative) U Tricyclic Antidepress (Negative) Ur Phencyclidine Scrn (Negative) Ur Amphetamines Screen (Negative) U Methamphetamines Scrn (Negative) Ur MDMA Scrn (Ecstasy) (Negative) U Benzodiazepines Scrn (Negative) Urine Cocaine Screen (Negative) U Marijuana (THC) Screen (Negative) Ethyl Alcohol ( - 10) mg/dL SARS-CoV-2 (PCR) (Negative) Point of Care Testing Test Results Negative Imaging Data US breast: Radiologist's Impression: Caity Rios??41??F??1980 ? Allergy/Adv: sulfamethoxazole, trimethoprim (More??) Close Breast Ultrasound (Signed) Tesfaye,Suleiman - 03/25/22 Chest CTA (Signed) Margaret De Leóne - 11/25/20 Chest X-Ray (Signed) Girdler,Mike - 11/25/20 Launch?Image [address] [address] Ultrasound Report Signed Patient: Caity Rios MR#: [id number] : 1980 Acct:[id number] Age/Sex: 41 / F Date of Service: 03/25/22 Loc: ED Accession Number: [id number] ?? Procedure: US breast RT limited Ordering Provider: Maribel Marte D.O. PROCEDURE: US BREAST RT LIMITED ? COMPARISON: None. ? INDICATIONS: lump ? TECHNIQUE:? Real-time sonographic evaluation performed of the right breast with image documentation.? Color Doppler also performed for further evaluation. ? FINDINGS: ? Within the upper inner quadrant of the right breast, there is a reported bruise.? In this region of palpable abnormality, there is an oval isoechoic subcutaneous mass lesion measuring approximately 1.8 x 0.9 x 2.0 cm at the 1 o'clock position 10 cm from the nipple. ? There is an adjacent small hypoechoic cyst measuring 0.3 x 0.2 x 0.4 cm.? There is posterior acoustic enhancement.? No definite internal mass. ? ? IMPRESSION: ? ? 1. Small isoechoic subcutaneous mass lesion demonstrated in the area of reported soft tissue bruise.? The findings likely represent a region of fat necrosis or lipoma.? Recommend short-term follow-up in 3-6 months to demonstrate stability or resolution. ? 2. Small simple appearing cyst demonstrated? ? Dictated by: Suleiman Tesfaye M.D. on 03/26/2022 at 1:08 ? ? Approved by: Suleiman Tesfaye M.D. on 03/26/2022 at 1:13?? Chest x-ray: My Impression: no acute process. Radiologist's Impression: [address] [address] XRay Report Signed Patient: Caity Rios MR#: [id number] : 1980 Acct:[id number] Age/Sex: 41 / F Date of Service: 03/26/22 Loc: 212-1 Accession Number: [id number] ?? Procedure: XR chest 1V Ordering Provider: Maribel Marte D.O. PROCEDURE:? XR CHEST 1V ? INDICATIONS:? chills, chest pain, sob. ? TECHNIQUE:? One view of the chest was acquired.? ? COMPARISON:? [facility], CR, XR CHEST 1V, 11/25/2020, 13:57. ? FINDINGS:? ? Surgical changes and devices:? None.? ? Lungs and pleura:? Lungs are clear.? No pleural effusions or pneumothorax.? ? Mediastinum:? Mediastinal contours appear normal.? Heart size is normal.? ? Bones and chest wall:? No suspicious bony lesions.? Overlying soft tissues appear unremarkable.? ? IMPRESSION:? No acute cardiopulmonary disease process. ? ? Dictated by: Geovanna Pelaez MD, PhD on 03/26/2022 at 8:46 ? ? Approved by: Goevanna Pelaez MD, PhD on 03/26/2022 at 8:46?? MDM Narrative Medical decision making narrative: This is a 41-year-old female with constellation of symptoms that have been going on of her prolonged period of time and atypical management of medication including both methimazole and Synthroid intermittently. Patient presents today after being told outpatient labs show a low white count by primary care provider. Patient does not have any clear source of infection but does have a leukopenia, slightly elevated liver enzymes, lactic acidosis persisting despite fluids. Patient was noted to states she does drink 1-2 drinks daily and alcohol was included in showed to be 319. Patient is COVID negative, chest x-ray was negative. Patient had bruise on her right anterior chest which he states has been prolonged ultrasound was obtained shows possible lipoma verses hematoma. Suspect there is a component of alcohol abuse when directly come friend did patient initially denies and minimizes. Discussed with hospitalist who accepts and ketones any BG included to evaluate for alcoholic ketoacidosis and observation to rule out sepsis or other causes of abnormalities and symptoms. Discharge Plan Departure Patient Disposition: Admitted as Observation Clinical Impression: Acidosis, lactic, Alcohol intoxication Admit Date/Time: 03/26/22 05:11 Admit Provider: Pablito Renner
--- NOTE | 2022-03-26 02:31 | DI.RAD.S_ITS ---
PROCEDURE: XR CHEST 1V INDICATIONS: chills, chest pain, sob. TECHNIQUE: One view of the chest was acquired. COMPARISON: [facility], CR, XR CHEST 1V, 11/25/2020, 13:57. FINDINGS: Surgical changes and devices: None. Lungs and pleura: Lungs are clear. No pleural effusions or pneumothorax. Mediastinum: Mediastinal contours appear normal. Heart size is normal. Bones and chest wall: No suspicious bony lesions. Overlying soft tissues appear unremarkable. IMPRESSION: No acute cardiopulmonary disease process. Dictated by: Geovanna Pelaez MD, PhD on 03/26/2022 at 8:46 Approved by: Geovanna Pelaez MD, PhD on 03/26/2022 at 8:46
[2022-03-26 02:45] LABS: Lipase 279 U/L (23-300)
[2022-03-26] MEDS: PIPERACILLIN/TAZO 4.5 GM in SODIUM CHLORIDE 0.9% 100 ML IV (02:51)
[2022-03-26 02:52] LABS: Ethanol (ETOH) 319 mg/dL
[2022-03-26 03:11] LABS: COVID19 -Nasal RAPID Negative (Negative)
[2022-03-26 03:30] LABS: Appearance Urine UA CLEAR; Bilirubin Urine UA NEGATIVE (NEGATIVE); Color Urine UA YELLOW; Glucose Urine UA NEGATIVE (Negative); Ketones Urine UA 1+ (NEGATIVE); Leukocyte Esterase Urine UA NEGATIVE (NEGATIVE); Nitrite Urine UA NEGATIVE (Negative); Occult Blood Urine UA TRACE-LYSED (Negative); Protein Urine UA TRACE (Negative)
[2022-03-26 03:33] LABS: pH Urine UA 5.5 (4.5-8.0)
[2022-03-26 03:36] LABS: UR Morphine/Opiate cutoff 300 Negative (Negative); Ur Creatinine 20 (Normal); Urine Amphetamines Negative (Negative); Urine Barbiturates Negative (Negative); Urine Benzodiazepines Negative (Negative); Urine Cocaine Negative (Negative); Urine MDMA Negative (Negative); Urine Methadone Negative (Negative); Urine Methamphetamines Negative (Negative); Urine Oxycodone Negative (Negative); Urine Phencyclidine Negative (Negative); Urine Tetrahydrocannabinol Negative (Negative); Urine Tricyclic Antidepressant Negative (Negative); Urine pH 5.5 (Normal)
[2022-03-26 03:48] LABS: Bacteria Urine None Seen; Culture Indicated Urine Cult Not Indicated; Hyaline Casts Urine 0-1/LPF; RBC Urine None Seen (0-5/HPF); WBC Urine None Seen (0-5/HPF)
[2022-03-26 04:58] LABS: Lactate (Lactic Acid) 3.1 mmol/L (0.7-2.1)
[2022-03-26 05:43] LABS: PCO2 ABG 34.2 mmHg (35-45); pH ABG 7.43 (7.35-7.45)
[2022-03-26 05:44] LABS: HCO3 ABG 23 mmol/L (22-26)
[2022-03-26 05:45] LABS: Fractionated Inspired Oxygen 21; TCO2 ABG 24 mmol/L (21-31)
[2022-03-26] MEDS: PHENobarbital 65 MG/ML VIAL 130 MG IV (05:54)
[2022-03-26] MEDS: THIAMINE 500 MG in SODIUM CHLORIDE 0.9% 100 ML 420 MG IV ×3 (05:58→20:37)
[2022-03-26 06:22] LABS: Ketones (Beta-Hydroxybutyrate) 0.85 mmol/L (<0.27)
--- NOTE | 2022-03-26 06:22 | PM.HP.1 ---
History of Present Illness History of Present Illness Date Patient Seen: 03/26/22 Time Patient Seen: 04:30 Chief complaint: lump in rt breast, neuropathy spreading bilat le's Narrative: Ms. 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 She states she got COVID a couple months ago. She recovered from that, but for weeks has been feeling generally unwell. She has bilateral numbness in her legs that is increasingly worsening now noting numbness from knees to thighs. She has generalized joint and body aches. She notes easy bruising and has had bruises on her breasts bilaterally caused due to a dog leash strike a few weeks ago. She has been feeling nauseous, intermittent chest pain. She has had a poor appetite and weight loss. She stated she was previously on methimazole and also has been on synthroid, but she states now she has stopped all these medications herself. She initially stated she drinks daily 1-2 beers, but does acknowledge to me she sometimes drinks significantly more and she has also been self-medicating with alcohol for pain. She says she feels safe at home and that her bruising has not been due to violence. She says she has never been in alcohol withdrawal, had alcohol seizures, or needed rehab. In the ED workup was done, vitals notable for tachycardia and elevated blood pressure. Labs notable for WBC 3.1, hgb 14.5, plts 136, creatinine 0.56. Glucose 95. Lactate 3.8. AST/ALT 178/72. INR 1.0. TSH 2.58. Procal 0.1. She was given IV fluids and lactate improved to 3.1. UA negative. She was given IV zosyn for possible infection. EtOH level was 319. Breast ultrasound showed small isoechoic subcutaneous mass lesion. She was admitted for further treatment. Patient History Medical History Acquired hypothyroidism Alcohol use Breast mass in female Elevated blood protein Elevated liver enzymes Fatty liver disease, nonalcoholic Duane's disease Patient denies medical problems Shortness of breath (08/2020) Tremors of nervous system (08/2020) Family & Social History Family History Father Diabetes mellitus Mother Cancer Grandfather Kidney failure Grandmother Cancer Safety & Behavioral: Feels Safe in Current Yes Environment Been Physically Hurt or No Threatened By a Person Tobacco & Substance use: Smoking Status Former smoker alcohol intake current alcohol intake frequency a few times a week Substance Use Type does not use Meds Home Medications and Allergies Home Medications Medication Instructions Recorded Confirmed Type methimazole 5 mg tablet 5 mg PO DAILY #30 tab 03/19/22 03/19/22 Rx metoprolol tartrate 25 mg tablet 25 mg PO DAILY #30 tab 03/19/22 03/19/22 Rx Allergies Allergy/AdvReac Type Severity Reaction Status Date / Time sulfamethoxazole Allergy Severe Anaphylaxis Verified 03/25/22 23:24 [From Bactrim] trimethoprim [From Bactrim] Allergy Severe Anaphylaxis Verified 03/25/22 23:24 Review of Systems Review of Systems Narrative: 14 systems reviewed and negative aside from what is noted in HPI Exam Vital Signs (past 8 hours): - 03/25/22 23:21 03/26/22 02:46 03/26/22 03:12 Temperature 99.3 F Pulse Rate 97 H 96 H Respiratory Rate 18 20 22 Blood Pressure 153/70 H Pulse Oximetry 98 98 99 03/26/22 03:15 03/26/22 03:30 03/26/22 04:00 Temperature Pulse Rate 90 88 87 Respiratory Rate 14 Blood Pressure 120/82 122/74 117/68 Pulse Oximetry 99 98 96 03/26/22 04:30 Temperature Pulse Rate 91 H Respiratory Rate 18 Blood Pressure 111/56 L Pulse Oximetry 96 Oxygen Delivery Method Room Air Narrative Exam Narrative: GEN: anxious, tremulous HEENT: moist mucous membranes, PERRL NECK: trachea midline, no JVD CV: tachycardic, no murmurs PULM: clear bilaterally, no wheezes, rhonchi, rales ABD: soft, nontender, nondistended, no organomegaly, normal bowel sounds EXT: warm and well perfused, with no edema NEURO: tremulous, anxious, no focal deficits Objective Labs Result Diagrams: 03/25/22 23:20 03/25/22 23:20 Labs: Laboratory Results - last 24 hr 03/25/22 03/25/22 03/25/22 23:20 23:20 23:20 WBC 3.1 L RBC 4.26 Hgb 14.5 Hct 41.6 MCV 97.7 MCH 34.0 MCHC 34.8 RDW 13.7 Plt Count 136 L Neut % (Auto) 55.1 Lymph % (Auto) 30.7 Ritchie % (Auto) 8.7 Eos % (Auto) 2.0 Baso % (Auto) 3.5 H Neut # (Auto) 1700 Lymph # (Auto) 900 L Ritchie # (Auto) 300 Eos # (Auto) 100 Baso # (Auto) 100 PT INR APTT ABG pH ABG pCO2 ABG pO2 ABG HCO3 ABG Total CO2 ABG O2 Saturation ABG Base Excess FiO2 Sodium 144 Potassium 4.7 Chloride 106 Carbon Dioxide 21 L BUN 9 Creatinine 0.56 Estimated GFR > 60 BUN/Creatinine Ratio 16.1 Glucose 95 Lactate 3.8 H Calcium 8.8 Total Bilirubin 1.2 AST 178 H ALT 72 H Alkaline Phosphatase 71 Total Protein 8.2 Albumin 5.1 H Globulin 3.1 Albumin/Globulin Ratio 1.6 Lipase Procalcitonin TSH Urine Color Urine Appearance Urine pH Ur Specific [place] Urine Protein Urine Glucose (UA) Urine Ketones Urine Occult Blood Urine Nitrate Urine Bilirubin Urine Urobilinogen Ur Leukocyte Esterase Urine RBC Urine WBC Urine Bacteria Hyaline Casts Ur Culture Indicated? U Opiates 300ng/mL cut Ur Oxycodone Screen Urine Methadone Screen Ur Barbiturates Screen U Tricyclic Antidepress Ur Phencyclidine Scrn Ur Amphetamines Screen U Methamphetamines Scrn Ur MDMA Scrn (Ecstasy) U Benzodiazepines Scrn Urine Cocaine Screen U Marijuana (THC) Screen Ethyl Alcohol SARS-CoV-2 (PCR) 03/25/22 03/25/22 03/25/22 23:20 23:30 23:30 WBC RBC Hgb Hct MCV MCH MCHC RDW Plt Count Neut % (Auto) Lymph % (Auto) Ritchie % (Auto) Eos % (Auto) Baso % (Auto) Neut # (Auto) Lymph # (Auto) Ritchie # (Auto) Eos # (Auto) Baso # (Auto) PT 11.3 INR 1.0 APTT 35 ABG pH ABG pCO2 ABG pO2 ABG HCO3 ABG Total CO2 ABG O2 Saturation ABG Base Excess FiO2 Sodium Potassium Chloride Carbon Dioxide BUN Creatinine Estimated GFR BUN/Creatinine Ratio Glucose Lactate Calcium Total Bilirubin AST ALT Alkaline Phosphatase Total Protein Albumin Globulin Albumin/Globulin Ratio Lipase Procalcitonin TSH 2.58 Urine Color Urine Appearance Urine pH Ur Specific [place] Urine Protein Urine Glucose (UA) Urine Ketones Urine Occult Blood Urine Nitrate Urine Bilirubin Urine Urobilinogen Ur Leukocyte Esterase Urine RBC Urine WBC Urine Bacteria Hyaline Casts Ur Culture Indicated? U Opiates 300ng/mL cut Ur Oxycodone Screen Urine Methadone Screen Ur Barbiturates Screen U Tricyclic Antidepress Ur Phencyclidine Scrn Ur Amphetamines Screen U Methamphetamines Scrn Ur MDMA Scrn (Ecstasy) U Benzodiazepines Scrn Urine Cocaine Screen U Marijuana (THC) Screen Ethyl Alcohol SARS-CoV-2 (PCR) 03/26/22 03/26/22 03/26/22 01:45 01:45 01:45 WBC RBC Hgb Hct MCV MCH MCHC RDW Plt Count Neut % (Auto) Lymph % (Auto) Ritchie % (Auto) Eos % (Auto) Baso % (Auto) Neut # (Auto) Lymph # (Auto) Ritchie # (Auto) Eos # (Auto) Baso # (Auto) PT INR APTT ABG pH ABG pCO2 ABG pO2 ABG HCO3 ABG Total CO2 ABG O2 Saturation ABG Base Excess FiO2 Sodium Potassium Chloride Carbon Dioxide BUN Creatinine Estimated GFR BUN/Creatinine Ratio Glucose Lactate 3.2 H Calcium Total Bilirubin AST ALT Alkaline Phosphatase Total Protein Albumin Globulin Albumin/Globulin Ratio Lipase 279 Procalcitonin 0.10 TSH Urine Color Urine Appearance Urine pH Ur Specific [place] Urine Protein Urine Glucose (UA) Urine Ketones Urine Occult Blood Urine Nitrate Urine Bilirubin Urine Urobilinogen Ur Leukocyte Esterase Urine RBC Urine WBC Urine Bacteria Hyaline Casts Ur Culture Indicated? U Opiates 300ng/mL cut Ur Oxycodone Screen Urine Methadone Screen Ur Barbiturates Screen U Tricyclic Antidepress Ur Phencyclidine Scrn Ur Amphetamines Screen U Methamphetamines Scrn Ur MDMA Scrn (Ecstasy) U Benzodiazepines Scrn Urine Cocaine Screen U Marijuana (THC) Screen Ethyl Alcohol 319 H SARS-CoV-2 (PCR) 03/26/22 03/26/22 03/26/22 02:00 03:10 03:10 WBC RBC Hgb Hct MCV MCH MCHC RDW Plt Count Neut % (Auto) Lymph % (Auto) Ritchie % (Auto) Eos % (Auto) Baso % (Auto) Neut # (Auto) Lymph # (Auto) Ritchie # (Auto) Eos # (Auto) Baso # (Auto) PT INR APTT ABG pH ABG pCO2 ABG pO2 ABG HCO3 ABG Total CO2 ABG O2 Saturation ABG Base Excess FiO2 Sodium Potassium Chloride Carbon Dioxide BUN Creatinine Estimated GFR BUN/Creatinine Ratio Glucose Lactate Calcium Total Bilirubin AST ALT Alkaline Phosphatase Total Protein Albumin Globulin Albumin/Globulin Ratio Lipase Procalcitonin TSH Urine Color Yellow Urine Appearance Clear Urine pH 5.5 Ur Specific [place] 1.020 Urine Protein Trace H Urine Glucose (UA) Negative Urine Ketones 1+ H Urine Occult Blood Trace-lysed Urine Nitrate Negative Urine Bilirubin Negative Urine Urobilinogen 1.0 Ur Leukocyte Esterase Negative Urine RBC None seen Urine WBC None seen Urine Bacteria None seen Hyaline Casts 0-1/lpf Ur Culture Indicated? Cult not indicated U Opiates 300ng/mL cut Negative Ur Oxycodone Screen Negative Urine Methadone Screen Negative Ur Barbiturates Screen Negative U Tricyclic Antidepress Negative Ur Phencyclidine Scrn Negative Ur Amphetamines Screen Negative U Methamphetamines Scrn Negative Ur MDMA Scrn (Ecstasy) Negative U Benzodiazepines Scrn Negative Urine Cocaine Screen Negative U Marijuana (THC) Screen Negative Ethyl Alcohol SARS-CoV-2 (PCR) Negative 03/26/22 03/26/22 04:25 05:21 WBC RBC Hgb Hct MCV MCH MCHC RDW Plt Count Neut % (Auto) Lymph % (Auto) Ritchie % (Auto) Eos % (Auto) Baso % (Auto) Neut # (Auto) Lymph # (Auto) Ritchie # (Auto) Eos # (Auto) Baso # (Auto) PT INR APTT ABG pH 7.43 ABG pCO2 34.2 L ABG pO2 ABG HCO3 23 ABG Total CO2 24 ABG O2 Saturation ABG Base Excess -2.0 FiO2 21 Sodium Potassium Chloride Carbon Dioxide BUN Creatinine Estimated GFR BUN/Creatinine Ratio Glucose Lactate 3.1 H Calcium Total Bilirubin AST ALT Alkaline Phosphatase Total Protein Albumin Globulin Albumin/Globulin Ratio Lipase Procalcitonin TSH Urine Color Urine Appearance Urine pH Ur Specific [place] Urine Protein Urine Glucose (UA) Urine Ketones Urine Occult Blood Urine Nitrate Urine Bilirubin Urine Urobilinogen Ur Leukocyte Esterase Urine RBC Urine WBC Urine Bacteria Hyaline Casts Ur Culture Indicated? U Opiates 300ng/mL cut Ur Oxycodone Screen Urine Methadone Screen Ur Barbiturates Screen U Tricyclic Antidepress Ur Phencyclidine Scrn Ur Amphetamines Screen U Methamphetamines Scrn Ur MDMA Scrn (Ecstasy) U Benzodiazepines Scrn Urine Cocaine Screen U Marijuana (THC) Screen Ethyl Alcohol SARS-CoV-2 (PCR) Assessment & Plan Assessment & Plan narrative: Ms. Rios is a 41W who presents with nausea, poor appetite, anxiety concerning for alcohol abuse and withdrawal 1. Acute alcohol withdrawal and alcohol abuse causing mild hepatitis and leukopenia and thrombocytopenia and neuropathy -constellation of findings including elevated alcohol level, AST/ALT 2:1, leukopenia, thrombocytopenia, and neuropathy all consistent with alcohol use -concern that she is minimizing use -clinically appears to be in active withdrawal -ordered phenobarb in ED -CIWA protocol -ordered PO/IV benzos -ordered MVI, thiamine, folate -SW consult 2. Elevated lactate -no evidence of infection with normal chest xray, no fevers, negative UA -suspect lactate elevated from possible thiamine deficiency or alcoholic ketoacidosis -ketones in urine, blood ketones pending -ABG ordered -start d5ns after getting dose of thiamine -suspect malnutrition, dietary consulted 3. Breast mass and bruising -patient states injury happened weeks ago -poor wound healing may be secondary to alcohol use -ultrasound showed concern for possible lipoma -will need follow up as outpatient -mechanism of injury unusual -discussed with patient and she states she feels safe at home - consult 4. Possible hypothyroidism -TSH normal -hold home medications -follow up as outpatient 5. Anxiety -consider starting SSRI prior to discharge CODE: Full Proxy: not provided I have utilized all available resources to reconcile the patient's home medications Time Spent With Patient Critical Care time: I spent a total of [] minutes of critical care time on this patient's care today; this time is exclusive of procedural time. Quality MIPS - Admit I confirm the patient?s Advance Care Plan is present, Code status is documented, Surrogate decision maker is in patient?s record [If Yes, STOP here]: Yes
[2022-03-26] MEDS: DEXTROSE 5%-0.9% NS 1,000 ML 100 ML IV ×2 (06:35→15:12)
[2022-03-26 06:44] LABS: Reflexed Lactate in 2 Hours Y
--- NOTE | 2022-03-26 07:30 | PC.NURSE ---
Pt. admitted from ER via portable bed. Denies any fall for the past 3 months, but having BLE's weakness. Oriented to her room, showed how to use her call light, TV & bed controls. Instructed to call for assistance to the BR. Medications was sent to the pharmacy, report given to day RN. Will cont. POC & monitor.
[2022-03-26 08:26] LABS: Reflexed Lactate in 2 Hours Y
[2022-03-26] MEDS: ONDANSETRON 4 MG/2 ML INJ IV ×2 (11:00→21:09)
--- NOTE | 2022-03-26 12:54 | ONC.MSW ---
T/C-Oncology Referral Navigation Activity: Pt/spouse left a message in Oncology requesting assistance with a referral. She is currently inpt, CT imaging detected a mass in her breast. Called pt's PCP, spoke with commissary production supervisor Gaye, requested that they place an urgent referral/prior-authorization for an Oncology referral and visits. Will call pt once this is in place. Notified Care Management FISH FARM MANAGER by voicemail.
--- NOTE | 2022-03-26 14:45 | CM.DANOTE ---
DCP Cont: Case received, EMR reviewed and met with patient. Introduced self and role. Was able to obtain some information regarding patient's baseline activity, health, and current living situation. DCP assessment completed with information currently available. Patient is a 41 year old female who admitted early this morning to the care of the hospitalist team. PCP: Dr. Chi. Payer: confirmed: [employer]/Medicaid. Patient came to the hospital via private vehicle secondary to dhills, chest pain and shortness of breath. Patient had also noted a lump on her chest that she indicated had some minor trauma and bruising. Patient was admitted for acute alcohol withdrawal and alcohol abuse causing mild hepatitis and leukopenia. It is also noted, per [id number], she had left a message, indicating that she is contacting patient's primary care provider, Dr. Chi, for a referral for oncology. Met with patient in her room. She is alert and oriented. She was sitting up having breakfast. Confirmed that she resides in [place] with her boyfriend, Jose Murdock. She used to work for [employer]. Asked patient about her alcohol use, if she feels that she needs any resources. Stated, she knows that she shouldn't drink, especially if it's affecting her health, and she can stop. Let her know that this DC Automatic Lump Making Machine Tender is available should she need any resources regarding alcohol use. P: DCP to continue to follow for any needs or resources. Leatha Jimenez RN/Manager Plan Discharge Planning/Care Management Advanced directive, confirm from FAMILY Start: 03/26/22 07:00 Freq: Q24H Status: Active Protocol: Document 03/26/22 06:21 MP (Rec: 03/26/22 07:30 MP [id number]) Advance Directive, confirm on record Time 06:21 Person contacted pt. Copy received No Document 03/26/22 07:00 KMD (Rec: 03/26/22 10:33 KMD [id number]) Advance Directive, confirm on record Time 06:21 Person contacted pt. Copy received No Time 10:33 Person contacted Evert Copy received No CM Discharge Assessment Start: 03/26/22 13:21 Freq: Status: Active Protocol: Document 03/26/22 13:21 VM (Rec: 03/26/22 13:23 VM [id number]) Discharge Planning Assessment Assigned Oracle Sql Developer Leatha Jimenez RN/Manager Plan Advance Directives? No Advance Directives on File No History Provided By Patient,Significant Other Prior Living Arrangements House Household Members significant other,children Type of transporation used prior to Drives own vehicle admit Independent with ADL's Yes Is patient alert and oriented? Yes Barriers to Discharge No Discharge Plan Home Transportation Arrangement Friend Referrals Initiated None needed Whiteboard Updated in Patient Room with Yes name and ext. # of Oracle Sql Developer Review Status In Process Next Review Type Continued Stay Review Discharge Planning/Care Management Advanced directive, confirm from FAMILY Start: 03/26/22 07:00 Freq: Q24H Status: Active Protocol: Document 03/26/22 06:21 MP (Rec: 03/26/22 07:30 MP [id number]) Advance Directive, confirm on record Time 06:21 Person contacted pt. Copy received No Document 03/26/22 07:00 KMD (Rec: 03/26/22 10:33 KMD [id number]) Advance Directive, confirm on record Time 06:21 Person contacted pt. Copy received No Time 10:33 Person contacted Pataine Copy received No CM Discharge Assessment Start: 03/26/22 13:21 Freq: Status: Active Protocol: Document 03/26/22 13:21 (Rec: 03/26/22 13:23 [id number]) Discharge Planning Assessment Assigned Oracle Sql Developer Leatha Jimenez RN/Manager Plan Advance Directives? No Advance Directives on File No History Provided By Patient,Significant Other Prior Living Arrangements House Household Members significant other,children Type of transporation used prior to Drives own vehicle admit Independent with ADL's Yes Is patient alert and oriented? Yes Barriers to Discharge No Discharge Plan Home Transportation Arrangement Friend Referrals Initiated None needed Whiteboard Updated in Patient Room with Yes name and ext. # of Oracle Sql Developer Review Status In Process Next Review Type Continued Stay Review
[2022-03-26] MEDS: LORazepam 2 MG/ML INJ IV (14:52)
--- NOTE | 2022-03-26 15:23 | PC.NURSE ---
Pt resting @ intervals, when awake , nausea, shakiness and weakness noted Lungs clear, SpO2 97% RA CiWa 12, after atrivan decreased to 2 Resting comfortably at this time. IVF infusing into LAC as per ordes, w/o incidence. Med w/ zofran once early in shift. Call light w/in reach, bed alarm on for pt safety. Continue w/plan of care.
[2022-03-27] VITALS (13 sets, daily range): BP systolic 117–134; BP diastolic 80–97; PULSE 77–102; RESP 14–20; TEMP 36.6–37.1; O2SAT 97–99
[2022-03-27] MEDS: DEXTROSE 5%-0.9% NS 1,000 ML 100 ML IV ×2 (02:22→14:55)
[2022-03-27 06:34] LABS: Add Manual Diff / Slide Review NO; Basophils Absolute Auto 0 /uL (0-100); Basophils Percent Auto 0.6 % (0-2); Eosinophils Absolute Auto 100 /uL (0-450); Eosinophils Percent Auto 5.3 % (2-4); Hematocrit 39.5 % (36-46); Hemoglobin 13.6 g/dL (12.0-16.0); Lymphocytes Absolute Auto 800 /uL (1100-4500); Lymphocytes Percent Auto 30.2 % (25-40); Mean Corpuscular HGB Conc 34.4 % (30-36); Mean Corpuscular Hemoglobin 33.7 PG (26-34); Mean Corpuscular Volume 98.2 fL (80-100); Monocytes Absolute Auto 400 /uL (0-900); Monocytes Percent Auto 13.2 % (3-14); Neutrophils Absolute Auto 1400 /uL (1500-7000); Neutrophils Percent Auto 50.7 % (50-75); Platelet Count 102 X10^3/uL (150-400); Red Blood Cell Count 4.02 X10^6/uL (4.0-5.2); Red Cell Distribution Width 13.4 % (11.6-14.8); White Blood Cell Count 2.7 X10^3/uL (4.5-11.0)
[2022-03-27 06:41] LABS: BUN Creatinine Ratio 5.9 (6-22); Blood Urea Nitrogen 3 mg/dL (7-17); Calcium 8.9 mg/dL (8.4-10.2); Carbon Dioxide 24 mmol/L (22-32); Chloride 106 mmol/L (98-107); Estimated Glomerular Filt Rate > 60 mL/min (>60); Glucose 116 mg/dL (70-100); HEMOLYSIS < 15 (0-50); Potassium 3.3 mmol/L (3.4-5.1); Sodium 136 mmol/L (137-145)
[2022-03-27] MEDS: ONDANSETRON 4 MG/2 ML INJ IV (08:58)
[2022-03-27] MEDS: MULTIVITAMIN 1 TABLET 1 TAB PO (10:36)
[2022-03-27] MEDS: FOLIC ACID 1 MG TABLET PO (10:36)
[2022-03-27] MEDS: ENOXAPARIN 40 MG/0.4 ML SYRINGE SUBCUT (10:36)
[2022-03-27] MEDS: THIAMINE 500 MG in SODIUM CHLORIDE 0.9% 100 ML 420 MG IV ×3 (10:39→20:54)
[2022-03-27] MEDS: POTASSIUM CHLORIDE 20 MEQ/15 ML UDC 40 MEQ PO (13:42)
--- NOTE | 2022-03-27 14:06 | DIET.CONS ---
Dietary Consultation Note Admission Date: 03/26/2022 05:11 Assessment: 41 y/o F admitted with nausea, poor appetite, anxiety concerning for ETOH abuse and withdrawal. Reports 2-6 beers per night on/off over the last 5 years. Describes ETOH use as a stress management strategy. Has had to change jobs. Busy day of home chores and responsibilities. Home schooling over the last couple years with covid. Her and her would drink beers to wind down in front of the TV. Feels confident that she can discontinue ETOH intake. Describes supportive family/spouse. Diet recall indicates nutrient intake is likely <75% energy needs over the last few months r/t ETOH intake, nausea, and poor appetite. Endorses severe neuropathy of LE which has improved since admit. Nausea over the last couple months. NFPE: slight protrusion of acromion process. Slight depression of gnosticist area. weight loss reported over the last 2-4 months of 5-5.7% (not severe). Diet recall: B: none L: 1c food (veggies, chx, starch) or couple bites of mac salad and a few slices of turkey Sn: apple D: cheerios Ht: 157.48 cm Wt: 53.6 kg BMI: 23.8 UBW: 56.8kg reported Last BM: 03/27/22 (03/27/22 11:20) MNA: 10 Los Score: 19 Diet: 03/26/22 Breakfast Heart Healthy Diet Diet Modifications: Nutrition Percent Meal Consumed 50% 03/26/22 19:00 Labs: RBC 4.02 X10^6/uL (4.0-5.2) 03/27/22 06:17 Hgb 13.6 g/dL (12.0-16.0) 03/27/22 06:17 Hct 39.5 % (36-46) 03/27/22 06:17 Creatinine 0.51 mg/dL (0.52-1.04) L 03/27/22 06:17 Lactate 3.0 mmol/L (0.7-2.1) H 03/26/22 06:02 Nutrition Diagnosis: Moderate PCM r/t excessive ETOH intake and poor PO aeb pt report 2-6 beers nightly, Ethyl ETOH level 319mg/dL upon admit, mild physical signs of muscle/fat loss, predicted <75% EER over last few months, GI symptoms of nausea >2 weeks Interventions: 1. MNT for ETOH abuse and malnutrition 2. Enc prioritizing proteins at meals 3. Provided Ensure vanilla to sample 4. Rec offering ensure if PO 50% or less. Monitoring/Evaluations: consult prn Electronically Signed by: Olivia Malave 03/27/22 14:06 Clinical Dietitian [address] [address]
--- NOTE | 2022-03-27 15:10 | CM.DPC ---
DCP Cont: Discussed patient during team rounds. Dr. Irving plans on putting patient on Thiamine, for her neuropathy, and will monitor. She is not yet medically ready for discharge home today. Laura in will see if she can make patient inpatient. P: DCP to continue to follow for needs. Home is the plan when stable. Leatha Jimenez RN/Veterans Adviser
--- NOTE | 2022-03-27 15:55 | PM.PN.1 ---
Subjective Subjective Date Patient Seen: 03/27/22 Interval history: Reports improving numbness in her extremities today, feeling a bit stronger and better overall. Denies nausea, vomiting. No chest pain or shortness of breath. Exam Vital Signs (past 8 hours): - 03/27/22 09:05 03/27/22 11:30 03/27/22 11:50 Temperature 98.4 F Pulse Rate 78 Respiratory Rate 16 Blood Pressure 134/91 H Pulse Oximetry 97 99 99 Oxygen Delivery Method Room Air Oxygen Flow Rate 0 Narrative Exam Narrative: GEN: anxious, tremulous HEENT: moist mucous membranes, PERRL NECK: trachea midline, no JVD CV: RRR, no murmurs PULM: clear bilaterally, no wheezes, rhonchi, rales ABD: soft, nontender, nondistended, no organomegaly, normal bowel sounds EXT: warm and well perfused, with no edema NEURO: tremulous, anxious, reported bilateral decreased sensation to mid calf bilaterally, improving. Appears a bit unsteady ambulating without assistance but is able to generally keep herself upright. Objective Labs Result Diagrams: 03/27/22 06:17 03/27/22 06:17 Labs: Laboratory Results - last 24 hr 03/27/22 03/27/22 06:17 06:17 WBC 2.7 L RBC 4.02 Hgb 13.6 Hct 39.5 MCV 98.2 MCH 33.7 MCHC 34.4 RDW 13.4 Plt Count 102 L Neut % (Auto) 50.7 Lymph % (Auto) 30.2 [place] % (Auto) 13.2 Eos % (Auto) 5.3 H Baso % (Auto) 0.6 Neut # (Auto) 1400 L Lymph # (Auto) 800 L [place] # (Auto) 400 Eos # (Auto) 100 Baso # (Auto) 0 Sodium 136 L Potassium 3.3 L D Chloride 106 Carbon Dioxide 24 BUN 3 L Creatinine 0.51 L Estimated GFR > 60 BUN/Creatinine Ratio 5.9 L Glucose 116 H Calcium 8.9 PFSH Medical History Acquired hypothyroidism Alcohol use Breast mass in female Elevated blood protein Elevated liver enzymes Fatty liver disease, nonalcoholic Duane's disease Patient denies medical problems Shortness of breath (08/2020) Tremors of nervous system (08/2020) Family History Father Diabetes mellitus Mother Cancer Grandfather Kidney failure Grandmother Cancer Social History household members: significant other and children Smoking Status: Former smoker second hand exposure: Yes alcohol intake: current substance use type: does not use Assessment & Plan Assessment & Plan narrative: Ms. Rios is a 41W who presents with nausea, poor appetite, anxiety concerning for alcohol abuse and withdrawal 1. Acute alcohol withdrawal and alcohol abuse causing mild alcoholic hepatitis with leukopenia, thrombocytopenia and neuropathy. Possible wernicke's encephalopathy. -constellation of findings including elevated alcohol level, AST/ALT 2:1, leukopenia, thrombocytopenia, and neuropathy all consistent with alcohol use -concern for wernicke's. given improvement on high dose IV thiamine with neurological symptoms today, continue for at least 3 days or until symptoms improve/ resolve and continue outpatient thiamine replacement. -clinically still appears to be in active withdrawal -ordered phenobarb in ED initlally, now on CIWA protocol with ativan as needed. -continue MVI, high dose thiamine as above, and folate -SW consult 2. Elevated lactate -no evidence of infection with normal chest xray, no fevers, negative UA -suspect lactate elevated from possible thiamine deficiency or alcoholic ketoacidosis -ketones in urine, blood ketones pending -started d5ns after getting dose of thiamine -suspect malnutrition, dietary consulted -will check lactate again tomorrow after above interventions. Rolly lactate has been 3 thus far during admission. 3. Breast mass and bruising -patient states injury happened weeks ago -poor wound healing may be secondary to alcohol use -ultrasound showed concern for possible lipoma -will need follow up as outpatient -mechanism of injury unusual -discussed with patient and she states she feels safe at home -SW consult 4. Possible hypothyroidism -TSH normal -hold home medications -follow up as outpatient 5. Anxiety -consider starting SSRI prior to discharge, though patient does not feel like she needs medications at this time. 6. Hypokalemia - replete as needed. CODE: Full Proxy: not provided, though this was discussed. I have utilized all available resources to reconcile the patient's home medications Time Spent With Patient Critical Care time: I spent a total of [] minutes of critical care time on this patient's care today; this time is exclusive of procedural time. Quality VTE Deep Vein Thrombosis/Pulmonary Embolism Present on Admission: No
[2022-03-27] MEDS: LORazepam 2 MG/ML INJ IV (23:33)
[2022-03-28] VITALS (10 sets, daily range): BP systolic 120–139; BP diastolic 76–93; PULSE 84–100; RESP 16–18; TEMP 36.1–36.8; O2SAT 98–100
[2022-03-28] MEDS: DEXTROSE 5%-0.9% NS 1,000 ML 100 ML IV ×2 (00:20→09:11)
[2022-03-28 07:31] LABS: Lactate (Lactic Acid) 1.9 mmol/L (0.7-2.1)
[2022-03-28] MEDS: FOLIC ACID 1 MG TABLET PO (08:32)
[2022-03-28] MEDS: ENOXAPARIN 40 MG/0.4 ML SYRINGE SUBCUT (08:32)
[2022-03-28] MEDS: MULTIVITAMIN 1 TABLET 1 TAB PO (08:32)
[2022-03-28] MEDS: THIAMINE 500 MG in SODIUM CHLORIDE 0.9% 100 ML 420 MG IV ×3 (08:33→23:31)
--- NOTE | 2022-03-28 20:14 | P.PN_ITS ---
Subjective Subjective Date Patient Seen: 03/28/22 Time Patient Seen: 08:00 Interval history: She continues to feel improved. Her ataxia is improved. Her gait is more steady. Her neuropathy is improving. She still feels tremulous. Her nausea and vomiting have improved. Exam Vital Signs (past 8 hours): - 03/28/22 16:00 Temperature 97.5 F L Pulse Rate 92 H Respiratory Rate 16 Blood Pressure 120/76 Pulse Oximetry 99 Oxygen Delivery Method Room Air Oxygen Flow Rate 0 Narrative Exam Narrative: GEN: anxious, tremulous CV: RRR, no murmurs PULM: clear bilaterally, no wheezes, rhonchi, rales ABD: soft, nontender, nondistended, no organomegaly, normal bowel sounds EXT: warm and well perfused, with no edema NEURO: tremulous, anxious, reported bilateral decreased sensation to ankles. Able to keep self upright Objective Labs Result Diagrams: 03/27/22 06:17 03/27/22 06:17 Labs: Laboratory Results - last 24 hr 03/28/22 06:48 Lactate 1.9 PFSH Medical History Acquired hypothyroidism Alcohol use Breast mass in female Elevated blood protein Elevated liver enzymes Fatty liver disease, nonalcoholic Duane's disease Patient denies medical problems Shortness of breath (08/2020) Tremors of nervous system (08/2020) Family History Father Diabetes mellitus Mother Cancer Grandfather Kidney failure Grandmother Cancer Social History household members: significant other and children Smoking Status: Former smoker second hand exposure: Yes alcohol intake: current substance use type: does not use Assessment & Plan Assessment & Plan narrative: Ms. Rios is a 41W who presents with nausea, poor appetite, anxiety concerning for alcohol abuse and withdrawal 1. Ataxia, neuropathy, improving -suspect secondary to thiamine deficiency/Wernicke's -started with high dose thiamine with improvement, can decrease to 250mg IV daily -may also be secondary to alcohol toxicity -encourage abstinence from alcohol 2. Acute alcohol withdrawal and alcohol abuse causing mild alcoholic hepatitis with leukopenia, thrombocytopenia and neuropathy -constellation of findings including elevated alcohol level, AST/ALT 2:1, leukopenia, thrombocytopenia, and neuropathy all consistent with alcohol use -clinically still appears to be in active withdrawal -ordered phenobarb in ED initially, now on CIWA protocol with ativan as needed. -continue MVI, high dose thiamine as above, and folate - consult 3. Elevated lactate -no evidence of infection with normal chest xray, no fevers, negative UA -suspect lactate elevated from possible thiamine deficiency or alcoholic ketoac idosis, now resolved with thiamine infusion -ketones in urine, blood ketones positive -started d5ns after getting dose of thiamine -suspect malnutrition, dietary consulted 4. Breast mass and bruising -patient states injury happened weeks ago -poor wound healing may be secondary to alcohol use -ultrasound showed concern for possible lipoma -will need follow up as outpatient -mechanism of injury unusual -discussed with patient and she states she feels safe at home - consult 5. Possible hypothyroidism -TSH normal -hold home medications -follow up as outpatient 6. Anxiety -consider starting SSRI prior to discharge, though patient does not feel like she needs medications at this time. 7. Hypokalemia ?- replete as needed. Time Spent With Patient Critical Care time: I spent a total of [] minutes of critical care time on this patient's care today; this time is exclusive of procedural time. Quality VTE Deep Vein Thrombosis/Pulmonary Embolism Present on Admission: No
[2022-03-28] MEDS: SENNOSIDES 8.6 MG TABLET 17.2 MG PO (22:18)
[2022-03-29] VITALS (8 sets, daily range): BP systolic 112–137; BP diastolic 75–98; PULSE 73–110; RESP 14–18; TEMP 35.9–36.9; O2SAT 94–100
[2022-03-29] MEDS: THIAMINE 500 MG in SODIUM CHLORIDE 0.9% 100 ML 420 MG IV (00:45)
[2022-03-29 08:41] LABS: Hemoglobin 13.6 g/dL (12.0-16.0); Mean Corpuscular HGB Conc 34.1 % (30-36); Mean Corpuscular Hemoglobin 33.5 PG (26-34); Mean Corpuscular Volume 98.2 fL (80-100); Platelet Count 113 X10^3/uL (150-400); Red Blood Cell Count 4.08 X10^6/uL (4.0-5.2); Red Cell Distribution Width 12.7 % (11.6-14.8); White Blood Cell Count 3.9 X10^3/uL (4.5-11.0)
[2022-03-29 08:52] LABS: Alanine Aminotransferase 54 IU/L (<35); Albumin 4.4 g/dL (3.5-5.0); Albumin Globulin Ratio 1.6 (1.0-2.8); Alkaline Phosphatase 44 U/L (38-126); Aspartate Aminotransferase 66 IU/L (14-36); BUN Creatinine Ratio 8.7 (6-22); Bilirubin Total 1.4 mg/dL (0.2-1.3); Blood Urea Nitrogen 4 mg/dL (7-17); Calcium 9.4 mg/dL (8.4-10.2); Carbon Dioxide 27 mmol/L (22-32); Chloride 104 mmol/L (98-107); Estimated Glomerular Filt Rate > 60 mL/min (>60); Globulin 2.8 g/dL (1.7-4.1); Glucose 117 mg/dL (70-100); HEMOLYSIS < 15 (0-50); Magnesium 1.6 mg/dL (1.6-2.3); Potassium 3.8 mmol/L (3.4-5.1); Sodium 136 mmol/L (137-145); Total Protein 7.2 g/dL (6.3-8.2)
[2022-03-29] MEDS: THIAMINE 250 MG in SODIUM CHLORIDE 0.9% 100 ML 420 MG IV (08:55)
[2022-03-29] MEDS: MULTIVITAMIN 1 TABLET 1 TAB PO (08:55)
[2022-03-29] MEDS: FOLIC ACID 1 MG TABLET PO (08:55)
[2022-03-29] MEDS: diphenhydrAMINE 50 MG/ML VIAL IV (09:01)
[2022-03-29] MEDS: DULOXETINE 20 MG CAPSULE PO (11:03)
--- NOTE | 2022-03-29 11:16 | PT-IP ANOTE ---
Physical therapy order received and chart reviewed. Spoke to her nurse and physician. Pt has no skilled physical therapy needs at this time. Discharge anticipated today. Will discharge order at this time.
--- NOTE | 2022-03-29 15:23 | PC.NURSE ---
Discharge Note Patient A&O, VSS, RA. No complaints of pain/discomfort. Discharge information reviewed with patient, all questions/concerns addressed. PIV discontinued. Patient able to back all belongings and dress self. Patient reminded to take prescriptions to preferred pharmacy. Patient taken down via wheelchair to POV.
--- NOTE | 2022-03-29 20:03 | P.DS_ITS ---
History of Present Illness History of Present Illness Chief complaint: lump in rt breast, neuropathy spreading bilat le's Narrative: Ms. Rios is a 41W with PMH reported Duane's disease, possible essential tr emor who presents with multiples issues. She states she got COVID a couple months ago. She recovered from that, but for weeks has been feeling generally unwell. She has bilateral numbness in her legs that is increasingly worsening now noting numbness from knees to thighs. She has generalized joint and body aches. She notes easy bruising and has had bruises on her breasts bilaterally caused due to a dog leash strike a few weeks ago. She has been feeling nauseous, intermittent chest pain. She has had a poor appetite and weight loss. She stated she was previously on methimazole and also has been on synthroid, but she states now she has stopped all these medications herself. She initially stated she drinks daily 1-2 beers, but does acknowledge to me she sometimes drinks significantly more and she has also been self-medicating with alcohol for pain. She says she feels safe at home and that her bruising has not been due to violence. She says she has never been in alcohol withdrawal, had alcohol seizures, or needed rehab. In the ED workup was done, vitals notable for tachycardia and elevated blood pressure. Labs notable for WBC 3.1, hgb 14.5, plts 136, creatinine 0.56. Glucose 95. Lactate 3.8. AST/ALT 178/72. INR 1.0. TSH 2.58. Procal 0.1. She was given IV fluids and lactate improved to 3.1. UA negative. She was given IV zosyn for possible infection. EtOH level was 319. Breast ultrasound showed small isoechoic subcutaneous mass lesion. She was admitted for further treatment. Discharge Providers Provider Date of admission: 03/27/22 15:15 Discharge Date: 03/29/22 Primary care physician: Daron Chi DO Consults: 03/26/22 05:08 Consult to LAND ACQUISITION SPECIALIST - Senior Risk Manager Stat Comment: LAND ACQUISITION SPECIALIST Consult needed for:: Substance Abuse Assess 03/26/22 06:21 Consult to Dietitian, Adult Routine Comment: Reason For Exam: etoh use 03/28/22 20:16 Consult to Occupational Therapy Evaluate & Treat Comment: Physician Instructions: Evaluate and treat Consult to Physical Therapy Evaluate & Treat Comment: Physician Instructions: Evaluate and Treat Discharge provider: Pablito Renner MD Summary Hospital Course Discharge Diagnosis: 1. Ataxia, neuropathy probable thiamine deficiency, beriberi vs early Wernicke's encephalopathy 2. Acute alcohol withdrawal 3. Alcohol abuse leading to alcoholic hepatitis, leukopenia, thrombocytopenia 4. Lactic acidosis secondary to thiamine deficiency 5. Breast mass with bruising, likely fat necrosis vs lipoma 6. Possible hypothyroidism 7. Anxiety Hospital Course: Ms. Rios was admitted with neurologic dysfunction with ataxia and neuropathy likely secondary to alcohol use and thiamine deficiency. She quickly improved with stopping alcohol and being given high dose thiamine infusion. She did have withdrawal in the hospital, and felt improved with [facility] protocol. She had notable multi-organ dysfunction with hepatitis, leukopenia, thrombocytopenia all likely secondary to alcohol use. These were improving with stopping alcohol use in the hospital. For her anxiety she was started on an ssri for daily use, and also given a prescription for vistiril to take as needed. She was offered resources to help with alcohol cessation, but she thought she could avoid without any further intervention. She is encouraged to follow up closely with her PCP. Exam Vital Signs (past 8 hours): - 03/29/22 12:15 Pulse Rate 91 H Respiratory Rate 18 Pulse Oximetry 94 Oxygen Delivery Method Room Air Oxygen Flow Rate 0 Narrative Exam Narrative: GEN: anxious CV: RRR, no murmurs PULM: clear bilaterally, no wheezes, rhonchi, rales ABD: soft, nontender, nondistended, no organomegaly, normal bowel sounds EXT: warm and well perfused, with no edema NEURO: anxious, reported bilateral decreased sensation of feet that is much improved Objective Labs Result Diagrams: 03/29/22 08:14 03/29/22 08:25 Labs: Laboratory Results - last 24 hr 03/29/22 03/29/22 08:14 08:25 WBC 3.9 L RBC 4.08 Hgb 13.6 Hct 40.0 MCV 98.2 MCH 33.5 MCHC 34.1 RDW 12.7 Plt Count 113 L Sodium 136 L Potassium 3.8 Chloride 104 Carbon Dioxide 27 BUN 4 L Creatinine 0.46 L Estimated GFR > 60 BUN/Creatinine Ratio 8.7 Glucose 117 H Calcium 9.4 Magnesium 1.6 Total Bilirubin 1.4 H AST 66 H ALT 54 H Alkaline Phosphatase 44 Total Protein 7.2 Albumin 4.4 Globulin 2.8 Albumin/Globulin Ratio 1.6 [facility] Medical History Acquired hypothyroidism Alcohol use Breast mass in female Elevated blood protein Elevated liver enzymes Fatty liver disease, nonalcoholic Duane's disease Patient denies medical problems Shortness of breath (08/2020) Tremors of nervous system (08/2020) Family History Father Diabetes mellitus Mother Cancer Grandfather Kidney failure Grandmother Cancer Social History household members: significant other and children Smoking Status: Former smoker second hand exposure: Yes alcohol intake: current substance use type: does not use Discharge Plan Discharge Plan Patient Disposition: Home Provider Discharge Comment: Ms. Rios came in to the hospital feeling quite poorly. She had numbness in her legs. She had liver injury. She had vitamin deficiency. It is thought this was due to effects from alcohol. She improved quite quickly with treatment. Her liver tests improved. Her numbness improved. She does have some anxiety and was prescribed two new medications for this. She was also ordered for folic acid, thiamine (vitamin B1), and a multivitamin for her vitamin deficiency. She is encouraged to avoid alcohol as much as possible. She should follow up with her PCP as soon as able. Discharge orders & Medications Prescriptions: New folic acid 1 mg Tablet 1 mg PO DAILY Qty: 30 0RF hydroxyzine pamoate 25 mg Capsule 25 mg PO Q6HR PRN (Reason: Anxiety) Qty: 60 0RF duloxetine [Cymbalta] 20 mg Capsule,Delayed Release(Dr/Ec) 20 mg PO DAILY Qty: 30 0RF multivitamin with folic acid [Tab-A-Humberto] 400 mcg Tablet 1 tab PO DAILY Qty: 30 0RF thiamine HCl (vitamin B1) 100 mg tablet 100 mg PO DAILY Qty: 30 0RF Discontinued metoprolol tartrate 25 mg tablet 25 mg PO DAILY 0RF Label Comments: TAKE ONE TABLET BY MOUTH ONE TIME DAILY methimazole 5 mg tablet 5 mg PO DAILY 0RF Label Comments: TAKE ONE TABLET BY MOUTH ONE TIME DAILY Follow up/Referrals: Daron Chi DO [Primary Care Provider] - Diet/Activity/Treatments Diet: Regular Visit Report/Discharge Packet Instructions: Alcohol and Stress: There are Safer Ways to [place], Generalized Anxiety Disorder, Anxiety Disorders, DI for Anxiety -- Adult Discharge Data Primary Care Provider: Daron Chi VTE Deep Vein Thrombosis/Pulmonary Embolism Present on Admission: No
== END 2022-03-29 14:15 | disposition home or self-care (01) | DRG 48 ==
LOC: ED 03-26 05:08 → AC 03-26 05:12
PROVIDERS: Internal Medicine; Admitting Provider Internal Medicine; Emergency Provider Emergency Medicine; PCP Family Medicine; Referring Provider Emergency Medicine; Visit Provider Internal Medicine
DX: G62.1 Alcoholic polyneuropathy (principal); R27.0 Ataxia, unspecified; F10.139 Alcohol abuse with withdrawal, unspecified; Y90.8 Blood alcohol level of 240 mg/100 ml or more; E44.0 Moderate protein-calorie malnutrition; Z68.21 Body mass index [BMI] 21.0-21.9, adult; K70.10 Alcoholic hepatitis without ascites; D72.819 Decreased white blood cell count, unspecified; E51.2 Wernicke's encephalopathy; D69.6 Thrombocytopenia, unspecified; F10.129 Alcohol abuse with intoxication, unspecified; E87.2 Acidosis; F10.188 Alcohol abuse with other alcohol-induced disorder; E51.11 Dry beriberi; R00.0 Tachycardia, unspecified; E87.6 Hypokalemia; F41.9 Anxiety disorder, unspecified; N63.12 Unspecified lump in the right breast, upper inner quadrant; Z86.16 Personal history of COVID-19; Z87.891 Personal history of nicotine dependence; Z20.822 Contact with and (suspected) exposure to COVID-19
CPT/HCPCS: 36415; 36600; 71045; 76642; 80048; 80053; 80305; 80320; 81001; 81025; 82009; 82805; 83605; 83690; 83735; 84145; 84443; 85025; 85027; 85610; 85730; 87040; 87635; 94760; 96365; 96366; 96375; 99283; 99284; C9803; G0378; J1200; J1650; J2060; J2405; J2543; J2560

== ENCOUNTER 2022-09-11 09:30 | Emergency (ER) | payer OTHER, MEDICAID, SELFPAY ==
[2022-03-26 06:15] VITALS: BMI 23.8
[2022-09-11] VITALS (13 sets, daily range): BP systolic 115–147; BP diastolic 81–90; PULSE 69–96; RESP 14–17; TEMP 36.6; O2SAT 98–100; BMI 21.9
[2022-09-11 10:38] LABS: Add Manual Diff / Slide Review NO; Basophils Absolute Auto 0 /uL (0-100); Basophils Percent Auto 0.3 % (0-2); Eosinophils Absolute Auto 400 /uL (0-450); Hematocrit 39.1 % (36-46); Hemoglobin 13.5 g/dL (12.0-16.0); Lymphocytes Absolute Auto 900 /uL (1100-4500); Lymphocytes Percent Auto 16.6 % (25-40); Mean Corpuscular HGB Conc 34.5 % (30-36); Mean Corpuscular Hemoglobin 32.7 PG (26-34); Mean Corpuscular Volume 94.9 fL (80-100); Monocytes Absolute Auto 500 /uL (0-900); Monocytes Percent Auto 8.7 % (3-14); Neutrophils Absolute Auto 3800 /uL (1500-7000); Neutrophils Percent Auto 67.4 % (50-75); Platelet Count 198 X10^3/uL (150-400); Red Blood Cell Count 4.12 X10^6/uL (4.0-5.2); Red Cell Distribution Width 12.9 % (11.6-14.8); White Blood Cell Count 5.7 X10^3/uL (4.5-11.0)
[2022-09-11 10:43] LABS: Alanine Aminotransferase 50 IU/L (<35); Albumin 4.4 g/dL (3.5-5.0); Albumin Globulin Ratio 1.4 (1.0-2.8); Alkaline Phosphatase 52 U/L (38-126); Aspartate Aminotransferase 71 IU/L (14-36); BUN Creatinine Ratio 9.8 (6-22); Bilirubin Total 0.8 mg/dL (0.2-1.3); Blood Urea Nitrogen 6 mg/dL (7-17); Calcium 8.9 mg/dL (8.4-10.2); Carbon Dioxide 25 mmol/L (22-32); Chloride 101 mmol/L (98-107); Estimated Glomerular Filt Rate > 60 mL/min (>60); Globulin 3.1 g/dL (1.7-4.1); Glucose 88 mg/dL (70-100); HEMOLYSIS < 15 (0-50); Lipase 96 U/L (23-300); Potassium 3.7 mmol/L (3.4-5.1); Sodium 136 mmol/L (137-145); Total Protein 7.5 g/dL (6.3-8.2)
--- NOTE | 2022-09-11 11:17 | ED_ITS ---
HPI - Abdominal Pain General Chief Complaint: Abdominal Pain Stated Complaint: numbness torso/back Time Seen by Provider: 09/11/22 11:09 Source: patient Mode of arrival: Ambulatory History of Present Illness HPI narrative: Patient is a 41-year-old female who presents with a Wednesday if symptoms. She feels like she has right upper pain and swelling ongoing for about 1 week. She has had peripheral neuropathy in her lower extremities is ongoing since the beginning of the year. Over the last 1 week she feels like she has had sharp shooting pain radiating up into her legs and into her. She denies any urinary incontinence or stool incontinence. She has not had any fever or chills. She did have upper respiratory like symptoms a few weeks ago. No nausea or vomiting. No leg weakness. She has missed to drinking 2-4 beers about 3 days a week. However the last 1 week she has quit drinking. She did not go through withdrawal. Related Data Previous Rx's Medication Instructions Recorded duloxetine 30 mg capsule,delayed 30 mg PO DAILY #90 caps 05/21/22 release hydroxyzine pamoate 25 mg capsule 25 mg PO Q6HR PRN Anxiety #60 caps 05/21/22 thiamine HCl (vitamin B1) 100 mg 100 mg PO DAILY #30 tabs 05/21/22 tablet trazodone 50 mg tablet 25 mg PO BEDTIME #30 tabs 05/21/22 folic acid 1 mg tablet See Rx Instructions .Route 05/24/22 .COMPLEX #30 tabs Allergies Allergy/AdvReac Type Severity Reaction Status Date / Time sulfamethoxazole Allergy Severe Anaphylaxis Verified 09/11/22 09:43 [From Bactrim] trimethoprim [From Bactrim] Allergy Severe Anaphylaxis Verified 09/11/22 09:43 Review of Systems Review of Systems Narrative: GENERAL: Denies chills, fatigue, malaise, fever, sweats, travel HEENT: Denies sinus pain, ear pain, sore throat, difficulty swallowing, neck pain RESPIRATORY: Denies dyspnea, cough, wheezing, hemoptysis, sputum. CARDIOVASCULAR: Denies chest pain, palpitations, orthopnea, edema GASTROINTESTINAL: see HPI : Denies dysuria, frequency, incontinence, hematuria, urinary retention, flank pain. MUSCULOSKELETAL: Denies weakness, joint pain, or bony pain SKIN: No rash, no erythema, no pruritus NEUROLOGIC: Denies weakness, dizziness, headache, numbness, change in speech, confusion PSYCHIATRIC: No concerning psychosocial issues. 12 point review of systems is negative except for those stated above and HPI Patient History Medical History (Updated 09/11/22 @ 14:21 by Debbie Perea DO) Acquired hypothyroidism Alcohol use Breast mass in female Elevated blood protein Elevated liver enzymes Fatty liver disease, nonalcoholic Generalized anxiety disorder Duane's disease Insomnia Patient denies medical problems Peripheral neuropathy Shortness of breath (08/2020) Tremors of nervous system (08/2020) Family History Father Diabetes mellitus Mother Cancer Grandfather Kidney failure Grandmother Cancer Social History household members: significant other and children Smoking Status: Former smoker second hand exposure: Yes alcohol intake: current substance use type: does not use Smoking Status: Former smoker alcohol intake frequency: a few times a week Alcohol type: beer Substance Use Type: does not use Exam Initial Vital Signs Initial Vital Signs: Vital Signs Temperature 97.9 F 09/11/22 09:38 Pulse Rate 82 09/11/22 09:38 Respiratory Rate 14 09/11/22 09:38 Blood Pressure 135/90 09/11/22 09:38 Pulse Oximetry 100 09/11/22 09:38 Oxygen Delivery Method 09/11/22 09:38 GENERAL: Alert slightly anxious 41-year-old female and in no acute distress. HEENT: Head atraumatic,EOMI, pupils reactive, face symmetric, moist mucous membranes CARDIOVASCULAR: Regular rate and rhythm without murmurs, rubs or gallops. RESPIRATORY: Breath sounds equal bilaterally, no wheezes rales or rhonchi. ABDOMEN: Right upper quadrant hepatomegaly is felt. No significant ascites otherwise soft and nontender BACK: No vertebral tenderness or step-off : No CVA tenderness EXTREMITIES: Normal range of motion, no clubbing or edema. Neurovascularly intact NEUROLOGICAL: Alert and oriented x4.Normal gait and speech. SKIN: Warm, dry, no laceration, no petechiae, no rashes or lesions. Course Orders Ordered: ED Orders 09/11/22 11:40 CT abdomen pelvis w con Stat 09/11/22 12:11 EKG-12 Lead Stat Discontinued Medications Ketorolac Tromethamine (Ketorolac 30 Mg/Ml Vial) 15 mg IV NOW ONE Stop: 09/11/22 11:41 Last Admin: 09/11/22 11:59 Dose: 15 mg Documented By: AYANA Vital Signs Vital signs: Vital Signs - 8 hr 09/11/22 11:24 09/11/22 11:23 09/11/22 11:30 Pulse Rate 78 70 Respiratory Rate 17 Blood Pressure 132/86 138/90 Pulse Oximetry 98 98 Oxygen Delivery Method Room Air 09/11/22 11:30 09/11/22 12:00 09/11/22 12:30 Pulse Rate 69 75 Respiratory Rate Blood Pressure 124/85 Pulse Oximetry 99 100 Oxygen Delivery Method 09/11/22 12:30 09/11/22 13:00 09/11/22 13:00 Pulse Rate 73 69 Respiratory Rate Blood Pressure 135/83 Pulse Oximetry 100 98 Oxygen Delivery Method 09/11/22 13:30 09/11/22 14:00 09/11/22 14:30 Pulse Rate 96 H 79 77 Respiratory Rate Blood Pressure Pulse Oximetry 99 100 100 Oxygen Delivery Method 09/11/22 14:31 09/11/22 14:41 Pulse Rate 83 Respiratory Rate Blood Pressure 147/85 H Pulse Oximetry 100 Oxygen Delivery Method MDM - Abdominal Pain Lab Data Result diagrams: 09/11/22 10:05 09/11/22 10:05 Labs: Lab Results 09/11/22 09/11/22 09/11/22 Range/Units 10:05 10:05 10:05 WBC 5.7 (4.5-11.0) X10^3/uL RBC 4.12 (4.0-5.2) X10^6/uL Hgb 13.5 (12.0-16.0) g/dL Hct 39.1 (36-46) % MCV 94.9 (80-100) fL MCH 32.7 (26-34) PG MCHC 34.5 (30-36) % RDW 12.9 (11.6-14.8) % Plt Count 198 (150-400) X10^3/uL Neut % (Auto) 67.4 (50-75) % Lymph % (Auto) 16.6 L (25-40) % [place] % (Auto) 8.7 (3-14) % Eos % (Auto) 7.0 H (2-4) % Baso % (Auto) 0.3 (0-2) % Neut # (Auto) 3800 (7323-8079) /uL Lymph # (Auto) 900 L (4317-7994) /uL [place] # (Auto) 500 (0-900) /uL Eos # (Auto) 400 (0-450) /uL Baso # (Auto) 0 (0-100) /uL Sodium 136 L (137-145) mmol/L Potassium 3.7 (3.4-5.1) mmol/L Chloride 101 (98-107) mmol/L Carbon Dioxide 25 (22-32) mmol/L BUN 6 L (7-17) mg/dL Creatinine 0.61 (0.52-1.04) mg/dL Estimated GFR > 60 (>60) mL/min BUN/Creatinine Ratio 9.8 (6-22) Glucose 88 (70-100) mg/dL Calcium 8.9 (8.4-10.2) mg/dL Total Bilirubin 0.8 (0.2-1.3) mg/dL AST 71 H (14-36) IU/L ALT 50 H (<35) IU/L Alkaline Phosphatase 52 (38-126) U/L Total Protein 7.5 (6.3-8.2) g/dL Albumin 4.4 (3.5-5.0) g/dL Globulin 3.1 (1.7-4.1) g/dL Albumin/Globulin Ratio 1.4 (1.0-2.8) Lipase 96 (23-300) U/L Serum , Qual Negative (Negative) Point of care testing: Urine Dip Bedside Urine Glucose Negative Bedside Urine Bilirubin - Negative Bedside Urine Ketone +/- 5 Urine Specific [place] 1.01 Bedside Urine Occult Blood - Negative Bedside Urine pH 6.0 Bedside Urine Protein - Negative Bedside Urine Urobilinogen - Negative Bedside Urine Nitrite - Negative Bedside Urine Leukocytes - Negative Esterase Imaging Data CT scan - abdomen/pelvis: Radiologist's Impression: tient: Caity Rios Ever MR#: [id number] : 1980 Acct:[id number] Age/Sex: 41 / F Date of Service: 09/11/22 Loc: ED Accession Number: [id number] ?? Procedure: CT abdomen pelvis w con Ordering Provider: Debbei Perea D.O. PROCEDURE:? CT ABDOMEN PELVIS W CON ? INDICATIONS:? right upper quad pain and hepatomegaly, right flank pain ? TECHNIQUE:? After the administration of intravenous contrast, axial sections acquired from the lung bases to the pubic symphysis.? Coronal and sagittal reformats were performed.? For radiation dose reduction, the following was used:? automated exposure control, adjustment of mA and/or kV according to patient size.? ? COMPARISON:? None. ? FINDINGS:? Image quality:? Excellent ? Lower chest:? Unremarkable ? Solid organs:? Focal fat adjacent to the falciform ligament in the liver.? Gallbladder is unremarkable.? No biliary ductal dilation.? Indeterminate hypoattenuating small lesions at the anterior tip of the spleen.? No adrenal nodules.? No hydronephrosis.? Subcentimeter lesions are too small to characterize. ? Vessels and lymph nodes:? No abdominal aortic aneurysm.? No pathologic adenopathy. ? Bowel and peritoneum:? No bowel obstruction.? Nonspecific distal esophageal wall thickening, often seen with esophagitis.? Colonic diverticula.? No convincing inflammation.? Normal appendix. ? Body wall:? Tiny fat containing umbilical hernia. ? Pelvis:? Mildly thick wall urinary bladder.? Reproductive organs are likely physiologic, limited CT evaluation.? Likely physiologic free fluid. ? Bones:? No acute or suspicious osseous abnormality. ? ? IMPRESSION:? No radiopaque gallstones or significant gallbladder inflammation.? The CBD is nondilated.? No convincing signs of enterocolitis or acute appendicitis. Mildly thick wall urinary bladder can be correlated with urinalysis. Pelvic organs appear within normal limits on limited CT evaluation.? Consider ultrasound if there is high concern for pathology. ? ? Dictated by: Raffy Ching M.D. on 09/11/2022 at 13:24 ? ? Approved by: Raffy Ching M.D. on 09/11/2022 at 13:30 ? MDM Narrative Medical decision making narrative: Patient blood work is overall reassuring. She does obvious hepatomegaly on palpation but CT has not mentioned that. Unclear she has numbness on her legs. That seems to be chronic ongoing. She has been seen by Neurology she is on multiple medications including duloxetine and gabapentin for it. She was having just increased pain today. At this time I do not have an explanation for her pain. I recommend that she was stained from alcohol and avoid Tylenol. Discharge Plan Departure Patient Disposition: Home Clinical Impression: Abdominal pain Instructions: DI for Abdominal Pain-Adult Activity Restrictions/Additional Instructions: *You have been diagnosed with abdominal pain *What to do: At this time blood work is overall reassuring CT scan did not abnormality. *Continue to take medications as directed Ibuprofen 600 mg every 6 hours if needed for [id number] pain (I would avoid Tylenol) *Follow up with your primary care provider in 2-3 days or call [phone] *Return to ER if you should have increased pain nausea vomiting fever or any new, worsening or concerning symptoms Prescriptions: No Action folic acid 1 mg tablet See Rx Instructions .ROUTE .COMPLEX Qty: 30 1RF Dose Instruction: TAKE ONE TABLET BY MOUTH ONE TIME DAILY Rx Instructions: TAKE ONE TABLET BY MOUTH ONE TIME DAILY duloxetine 30 mg capsule,delayed release(DR/EC) 30 mg PO DAILY Qty: 90 1RF trazodone 50 mg tablet 25 mg PO BEDTIME Qty: 30 1RF thiamine HCl (vitamin B1) 100 mg tablet 100 mg PO DAILY Qty: 30 3RF hydroxyzine pamoate 25 mg capsule 25 mg PO Q6HR PRN (Reason: Anxiety) Qty: 60 1RF Referrals: Daron Chi DO [Primary Care Provider] - Visit Report Forms: Patient Portal/API
--- NOTE | 2022-09-11 11:40 | DI.CT.S_ITS ---
PROCEDURE: CT ABDOMEN PELVIS W CON INDICATIONS: right upper quad pain and hepatomegaly, right flank pain TECHNIQUE: After the administration of intravenous contrast, axial sections acquired from the lung bases to the pubic symphysis. Coronal and sagittal reformats were performed. For radiation dose reduction, the following was used: automated exposure control, adjustment of mA and/or kV according to patient size. COMPARISON: None. FINDINGS: Image quality: Excellent Lower chest: Unremarkable Solid organs: Focal fat adjacent to the falciform ligament in the liver. Gallbladder is unremarkable. No biliary ductal dilation. Indeterminate hypoattenuating small lesions at the anterior tip of the spleen. No adrenal nodules. No hydronephrosis. Subcentimeter lesions are too small to characterize. Vessels and lymph nodes: No abdominal aortic aneurysm. No pathologic adenopathy. Bowel and peritoneum: No bowel obstruction. Nonspecific distal esophageal wall thickening, often seen with esophagitis. Colonic diverticula. No convincing inflammation. Normal appendix. Body wall: Tiny fat containing umbilical hernia. Pelvis: Mildly thick wall urinary bladder. Reproductive organs are likely physiologic, limited CT evaluation. Likely physiologic free fluid. Bones: No acute or suspicious osseous abnormality. IMPRESSION: No radiopaque gallstones or significant gallbladder inflammation. The CBD is nondilated. No convincing signs of enterocolitis or acute appendicitis. Mildly thick wall urinary bladder can be correlated with urinalysis. Pelvic organs appear within normal limits on limited CT evaluation. Consider ultrasound if there is high concern for pathology. Dictated by: Raffy Ching M.D. on 09/11/2022 at 13:24 Approved by: Raffy Ching M.D. on 09/11/2022 at 13:30
[2022-09-11] MEDS: KETOROLAC 30 MG/ML VIAL 15 MG IV (11:59)
[2022-09-11 12:32] LABS: Pregnancy Test Serum,Qual Negative (Negative)
== END 2022-09-11 14:49 | disposition home or self-care (01) ==
PROVIDERS: Emergency Provider Emergency Medicine; PCP Family Medicine
DX: R10.11 Right upper quadrant pain (principal); R20.0 Anesthesia of skin
CPT/HCPCS: 36415; 74177; 80053; 81003; 83690; 84703; 85025; 93005; 96374; 99284; J1885; Q9967

== ENCOUNTER 2023-01-05 17:19 | Emergency (ER) | payer OTHER, MEDICAID, SELFPAY ==
[2022-03-26 06:15] VITALS: BMI 23.8
[2023-01-05 17:23] VITALS: BP 172/99; PULSE 75; RESP 18; TEMP 36.6; O2SAT 99; BMI 21.0
--- NOTE | 2023-01-05 18:40 | DI.CT.S_ITS ---
PROCEDURE: CT ABDOMEN PELVIS W CON INDICATIONS: upper abdominal pain TECHNIQUE: After the administration of intravenous contrast, axial sections acquired from the lung bases to the pubic symphysis. Coronal and sagittal reformats were performed. For radiation dose reduction, the following was used: automated exposure control, adjustment of mA and/or kV according to patient size. COMPARISON: Located Within [facility], CT, CT ABDOMEN PELVIS W CON, 09/11/2022, 13:19. FINDINGS: Image quality: Excellent. Lung bases: Lung bases are clear. Heart size is normal. Solid organs: Liver: The liver has no mass or intrahepatic biliary ductal dilatation. The portal vein and hepatic veins are patent. Biliary: The gallbladder has no gallstones, pericholecystic fluid, gallbladder wall thickening, or surrounding inflammatory change. Pancreas: The pancreas has no mass or ductal dilatation. There is no surrounding inflammation. Spleen: Normal size. There are no masses. Adrenals: No hypertrophy or nodules. Kidneys: No obstructive calculus or hydronephrosis. No solid mass. No cystic mass. Peritoneum and bowel: The distal esophagus and stomach are normal. The small bowel has a normal caliber and appearance. The terminal ileum is normal. The large bowel has a normal caliber and appearance. The appendix is normal. No free fluid or air. Nodes and vessels: No retroperitoneal or mesenteric adenopathy by size criteria. Aorta and inferior vena cava are normal in size. Miscellaneous: No abdominal wall mass or hernia. PELVIS: Genitourinary: The bladder wall is thickened. No focal mass. Bones: No suspicious bony lesions. No vertebral body compression fractures. IMPRESSION: 1. No acute abnormality of the abdomen or pelvis. 2. Hepatic steatosis. 3. Thickening of the bladder wall could be due to cystitis. Please correlate with urinalysis. Dictated by: Yrn Garcia M.D. on 01/05/2023 at 20:27 Approved by: Yrn Garcia M.D. on 01/05/2023 at 20:33
[2023-01-05 18:50] LABS: Add Manual Diff / Slide Review NO; Basophils Absolute Auto 0 /uL (0-100); Basophils Percent Auto 0.5 % (0-2); Eosinophils Absolute Auto 200 /uL (0-450); Eosinophils Percent Auto 4.8 % (2-4); Hematocrit 42.9 % (36-46); Hemoglobin 14.7 g/dL (12.0-16.0); Lymphocytes Absolute Auto 700 /uL (1100-4500); Lymphocytes Percent Auto 15.9 % (25-40); Mean Corpuscular HGB Conc 34.3 % (30-36); Mean Corpuscular Hemoglobin 32.5 PG (26-34); Mean Corpuscular Volume 94.8 fL (80-100); Monocytes Absolute Auto 500 /uL (0-900); Neutrophils Absolute Auto 3200 /uL (1500-7000); Neutrophils Percent Auto 68.8 % (50-75); Platelet Count 174 X10^3/uL (150-400); Red Blood Cell Count 4.52 X10^6/uL (4.0-5.2); Red Cell Distribution Width 13.3 % (11.6-14.8); White Blood Cell Count 4.7 X10^3/uL (4.5-11.0)
[2023-01-05 18:57] LABS: Appearance Urine UA Slightly Cloudy; Color Urine UA Dark Yellow; Specific Gravity Urine UA 1.025 (1.000-1.035)
[2023-01-05 18:58] LABS: Bilirubin Urine UA 2+ (NEGATIVE); Glucose Urine UA NEGATIVE (Negative); Ketones Urine UA 3+ (NEGATIVE); Leukocyte Esterase Urine UA NEGATIVE (NEGATIVE); Nitrite Urine UA POSITIVE (Negative); Occult Blood Urine UA NEGATIVE (Negative); Protein Urine UA 1+ (Negative)
[2023-01-05 18:59] LABS: RBC Urine None Seen (0-5/HPF); WBC Urine 5-10/HPF (0-5/HPF)
[2023-01-05 19:00] LABS: Amorphous Sediment Urine 1+; Bacteria Urine Moderate (10-30); Granular Casts Urine 1-5/LPF; Hyaline Casts Urine 1-5/LPF; Mucus Urine 3+ (Negative); Squamous Epithelial Cell Urine 5-10 /HPF (0-5/HPF)
[2023-01-05 19:01] LABS: Pregnancy Test Urine Negative (Negative)
[2023-01-05 19:02] LABS: Ictotest Urine Positive (Negative)
--- NOTE | 2023-01-05 19:14 | DI.US.S_ITS ---
PROCEDURE: US ABDOMEN LIMITED INDICATIONS: RUQ PAIN TECHNIQUE: Real-time focused scanning was performed of the abdomen, with image documentation. COMPARISON: [facility], CT, CT ABDOMEN PELVIS W CON, 01/05/2023, 19:08. FINDINGS: The liver demonstrates increased parenchymal echogenicity compatible with fatty infiltration. The gallbladder demonstrates biliary sludge and a few echogenic gallstones. No definite obstructing stones visualized in the gallbladder neck. No gallbladder wall thickening, pericholecystic fluid, or reported sonographic Cameron's sign. No intra or extrahepatic biliary ductal dilatation. Visualized pancreas appears unremarkable sonographically. IMPRESSION: 1. Cholelithiasis and biliary sludge demonstrated without definite evidence of acute cholecystitis. 2. Hepatic steatosis. Dictated by: Suleiman Tesfaye M.D. on 01/05/2023 at 20:38 Approved by: Suleiman Tesfaye M.D. on 01/05/2023 at 20:40
[2023-01-05 19:16] LABS: Alanine Aminotransferase 76 IU/L (<35); Albumin 5.1 g/dL (3.5-5.0); Albumin Globulin Ratio 1.5 (1.0-2.8); Alkaline Phosphatase 61 U/L (38-126); Aspartate Aminotransferase 89 IU/L (14-36); BUN Creatinine Ratio 16.1 (6-22); Blood Urea Nitrogen 10 mg/dL (7-17); Calcium 9.7 mg/dL (8.4-10.2); Carbon Dioxide 23 mmol/L (22-32); Chloride 97 mmol/L (98-107); Creatine Kinase 96 U/L (30-135); Estimated Glomerular Filt Rate > 60 mL/min (>60); Globulin 3.5 g/dL (1.7-4.1); Glucose 107 mg/dL (70-100); HEMOLYSIS < 15 (0-50); Lipase 153 U/L (23-300); Potassium 3.9 mmol/L (3.4-5.1); Sodium 134 mmol/L (137-145); Total Protein 8.6 g/dL (6.3-8.2)
--- NOTE | 2023-01-05 19:19 | ED_ITS ---
HPI - Abdominal Pain <Giana Mcmanus PA-C - Last Filed: 01/05/23 20:32> General Chief Complaint: Abdominal Pain Stated Complaint: TORSO PAIN, NUMBNESS, FELLS LIKE INSIDES SWELLING Time Seen by Provider: 01/05/23 18:14 Source: patient Mode of arrival: Ambulatory History of Present Illness HPI narrative: 42-year-old female with past medical history generalized anxiety disorder, peripheral neuropathy, Duane's disease, alcohol use disorder, fatty liver disease, tremors of the nervous system presents to the ED with 2 months of worsening upper abdominal pain. Patient states that she feels pressure in the epigastric region, and that it is pushing out towards her ribs. Patient states she has not had much of an appetite for a few weeks now. Patient had 1 episode of vomiting 2 days ago. Patient denies fevers, endorses chills. Patient denies chest pain, shortness of breath, lightheadedness, dizziness, syncope. Patient denies dysuria but endorses dark cloudy urine. Endorses decreased urine. Patient has a history of alcohol use disorder, for which she was hospitalized in 04/05. Patient states that since then, she has reduced her drinking to 1 drink a week. Patient has a history of benign essential tremors for which she has been prescribed propranolol. Patient also has diagnosed with Duane's, was prescribed methimazole that she does not believe that it helps. Related Data Previous Rx's Medication Instructions Recorded duloxetine 30 mg capsule,delayed 30 mg PO DAILY #90 caps 05/21/22 release hydroxyzine pamoate 25 mg capsule 25 mg PO Q6HR PRN Anxiety #60 caps 05/21/22 thiamine HCl (vitamin B1) 100 mg 100 mg PO DAILY #30 tabs 05/21/22 tablet trazodone 50 mg tablet 25 mg PO BEDTIME #30 tabs 05/21/22 folic acid 1 mg tablet See Rx Instructions .Route 05/24/22 .COMPLEX #30 tabs nitrofurantoin 100 mg PO Q12H 5 days #9 caps 01/05/23 monohydrate/macrocrystals 100 mg capsule (Macrobid) Allergies Allergy/AdvReac Type Severity Reaction Status Date / Time sulfamethoxazole Allergy Severe Anaphylaxis Verified 09/11/22 09:43 [From Bactrim] trimethoprim [From Bactrim] Allergy Severe Anaphylaxis Verified 09/11/22 09:43 Review of Systems <Giana Mcmanus PA-C - Last Filed: 01/05/23 20:32> Review of Systems ROS Unobtainable: All systems reviewed & are unremarkable except as noted in HPI and below Constitutional Constitutional: Reports chills, Reports excessive sweating, Denies fatigue, Denies fever(s), Denies frequent falls, Denies lethargy, Reports poor appetite and Denies weakness Eyes Eyes: Denies change in vision, Denies eye discharge, Denies irritation and Denies loss of vision ENT Ears, Nose, Mouth, and Throat: Denies change in voice, Denies dizziness, Denies neck pain, Denies sore throat and Denies throat swelling Cardiovascular Cardiovascular: Denies chest pain, Denies irregular heart rhythm, Denies lightheadedness, Denies palpitations, Denies dyspnea, Denies dyspnea on exertion and Denies orthopnea Respiratory Respiratory: Denies cough, Denies dyspnea, Denies dyspnea on exertion and Denies wheezing Gastrointestinal Gastrointestinal: Reports abdominal pain, Denies change in bowel habits, Denies diarrhea, Reports nausea and Reports vomiting Genitourinary Genitourinary: Denies hematuria, Denies flank pain, Denies urinary incontinence and Denies urinary urgency Comments: Cloudy urine Musculoskeletal Musculoskeletal: Denies back pain, Denies muscle weakness, Denies neck pain, Denies numbness and Denies tingling Integumentary/Breasts Skin/Breast: Denies pruritus, Denies erythema, Denies rash and Denies wounds Neurologic Neurologic: Denies behavioral changes, Denies confusion, Denies dizziness, Denies frequent falls, Denies loss of vision, Denies numbness, Denies tingling and Denies weakness Psychiatric Psychiatric: Denies anxiety, Denies behavioral changes, Denies confusion, Denies depression, Denies homicidal ideation and Denies suicidal ideation Endocrine Endocrine: Reports excessive sweating, Denies fatigue, Denies flushing and Denies palpitations Hematologic/Lymphatic Hematologic/Lymphatic: Denies easy bruising Allergic/Immunologic Allergic/Immunologic: Denies urticaria, Denies throat swelling and Denies wheezing Patient History <Giana Mcmanus PA-C - Last Filed: 01/05/23 20:32> Medical History Acquired hypothyroidism Alcohol use Breast mass in female Elevated blood protein Elevated liver enzymes Fatty liver disease, nonalcoholic Generalized anxiety disorder Duane's disease Insomnia Patient denies medical problems Peripheral neuropathy Shortness of breath (08/2020) Tremors of nervous system (08/2020) Family History Father Diabetes mellitus Mother Cancer Grandfather Kidney failure Grandmother Cancer Social History household members: significant other and children Smoking Status: Former smoker second hand exposure: Yes alcohol intake: current substance use type: does not use Smoking Status: Former smoker alcohol intake frequency: a few times a week Alcohol type: beer Substance Use Type: does not use Exam <Giana Mcmanus PA-C - Last Filed: 01/05/23 20:32> Narrative Exam Narrative: Const General:?cooperative, healthy appearing and comfortable HENWI Head:?normal to inspection Ears:?hearing grossly normal bilaterally Nose:?external nose normal Face and sinus:?normal facial exam and sinuses nontender Mouth:?oral mucosae normal Throat:?posterior oropharynx normal Eyes General:?appearance normal, both eyes and all related structures Neck Neck:?normal visual inspection and no lymphadenopathy noted Resp Effort & Inspection:?normal respiratory effort Auscultation:?clear to auscultation bilaterally Cardio Rate:?regular rate Rhythm:?regular rhythm GI Abdomen is soft with hepatomegaly, tenderness to palpation in the epigastric region. There is bilateral CVA tenderness. Neuro General:?patient alert, patient awake and patient oriented x3 Initial Vital Signs Initial Vital Signs: Vital Signs Temperature 98 F 01/05/23 17:23 Pulse Rate 75 01/05/23 17:23 Respiratory Rate 18 01/05/23 17:23 Blood Pressure 172/99 H 01/05/23 17:23 Pulse Oximetry 99 01/05/23 17:23 Oxygen Delivery Method 01/05/23 17:23 <Cas Butts DO - Last Filed: 01/06/23 01:49> Initial Vital Signs Initial Vital Signs: Vital Signs Temperature 98 F 01/05/23 17:23 Pulse Rate 75 01/05/23 17:23 Respiratory Rate 18 01/05/23 17:23 Blood Pressure 172/99 H 01/05/23 17:23 Pulse Oximetry 99 0221/23 17:23 Oxygen Delivery Method 01/05/23 17:23 Course <Giana Mcmanus PA-C - Last Filed: 01/05/23 20:32> Orders Ordered: ED Orders 01/05/23 17:30 Ictotest Urine Stat Test Urine Stat Urinalysis and Microscopic Stat Urine Culture Stat 01/05/23 18:32 Complete Blood Count AUTO DIFF Stat Comprehensive Metabolic Panel Stat ETOH [Ethanol (ETOH)] Stat Lipase Stat TSH [Thyroid Stimulating Hormone] Stat Troponin & CK Cardiac Panel Stat 01/05/23 18:39 EKG-12 Lead Stat 01/05/23 18:40 CT abdomen pelvis w con Stat 01/05/23 19:14 US abdomen limited Stat Discontinued Medications Nitrofurantoin Macrocrystals (Nitrofurantoin Er 100 Mg Capsule) 100 mg PO NOW ONE Stop: 01/05/23 21:28 Last Admin: 01/05/23 21:51 Dose: 100 mg Documented By: OW Vital Signs Vital signs: Vital Signs - 8 hr 01/05/23 20:00 01/05/23 22:01 Pulse Rate 74 75 Respiratory Rate 20 20 Blood Pressure 149/95 H 138/91 H Pulse Oximetry 98 98 Oxygen Delivery Method Room Air Room Air <Cas Butts DO - Last Filed: 01/06/23 01:49> Orders Ordered: ED Orders 01/05/23 17:30 Ictotest Urine Stat Test Urine Stat Urinalysis and Microscopic Stat Urine Culture Stat 01/05/23 18:32 Complete Blood Count AUTO DIFF Stat Comprehensive Metabolic Panel Stat ETOH [Ethanol (ETOH)] Stat Lipase Stat TSH [Thyroid Stimulating Hormone] Stat Troponin & CK Cardiac Panel Stat 01/05/23 18:39 EKG-12 Lead Stat 01/05/23 18:40 CT abdomen pelvis w con Stat 01/05/23 19:14 US abdomen limited Stat Discontinued Medications Nitrofurantoin Macrocrystals (Nitrofurantoin Er 100 Mg Capsule) 100 mg PO NOW ONE Stop: 01/05/23 21:28 Last Admin: 01/05/23 21:51 Dose: 100 mg Documented By: OW Vital Signs Vital signs: Vital Signs - 8 hr 01/05/23 20:00 01/05/23 22:01 Pulse Rate 74 75 Respiratory Rate 20 20 Blood Pressure 149/95 H 138/91 H Pulse Oximetry 98 98 Oxygen Delivery Method Room Air Room Air MDM - Abdominal Pain <Rutha GRACY Mcmanus - Last Filed: 01/05/23 20:32> Lab Data 01/05/23 18:32 01/05/23 18:32 Labs: Lab Results 01/05/23 01/05/23 01/05/23 Range/Units 17:30 17:30 17:30 WBC (4.5-11.0) X10^3/uL RBC (4.0-5.2) X10^6/uL Hgb (12.0-16.0) g/dL Hct (36-46) % MCV (80-100) fL MCH (26-34) PG MCHC (30-36) % RDW (11.6-14.8) % Plt Count (150-400) X10^3/uL Neut % (Auto) (50-75) % Lymph % (Auto) (25-40) % [place] % (Auto) (3-14) % Eos % (Auto) (2-4) % Baso % (Auto) (0-2) % Neut # (Auto) (4987-1061) /uL Lymph # (Auto) (6010-5634) /uL [place] # (Auto) (0-900) /uL Eos # (Auto) (0-450) /uL Baso # (Auto) (0-100) /uL Sodium (137-145) mmol/L Potassium (3.4-5.1) mmol/L Chloride (98-107) mmol/L Carbon Dioxide (22-32) mmol/L BUN (7-17) mg/dL Creatinine (0.52-1.04) mg/dL Estimated GFR (>60) mL/min BUN/Creatinine Ratio (6-22) Glucose (70-100) mg/dL Calcium (8.4-10.2) mg/dL Total Bilirubin (0.2-1.3) mg/dL AST (14-36) IU/L ALT (<35) IU/L Alkaline Phosphatase (38-126) U/L Total Creatine Kinase (30-135) U/L CK-MB (CK-2) CK-MB (CK-2) Rel Index Troponin I (0.01-0.034) ng/mL Total Protein (6.3-8.2) g/dL Albumin (3.5-5.0) g/dL Globulin (1.7-4.1) g/dL Albumin/Globulin Ratio (1.0-2.8) Lipase (23-300) U/L TSH (0.47-4.68) uIU/mL Urine Color Dark yellow Urine Appearance Slightly cloudy Urine pH 6.0 (4.5-8.0) Ur Specific [place] 1.025 (1.000-1.035) Urine Protein 1+ H (Negative) Urine Glucose (UA) Negative (Negative) g/dL Urine Ketones 3+ H (NEGATIVE) Urine Occult Blood Negative (Negative) Urine Nitrate Positive H (Negative) Urine Bilirubin 2+ H (NEGATIVE) Ur Bilirubin Confirm Positive H (Negative) Urine Urobilinogen 1.0 (0.2) E.U./dL Ur Leukocyte Esterase Negative (NEGATIVE) Urine RBC Cancelled None seen Urine WBC Cancelled 5-10/hpf H Ur Squamous Epith Cells Cancelled 5-10 /hpf H Ur Transition Epith Cell Cancelled Ur Renal Epithelial Cell Cancelled Calcium Oxalate Crystal Cancelled Uric Acid Crystals Cancelled Triple Phos Crystals Cancelled Other Crystals Cancelled Amorphous Sediment Cancelled 1+ Urine Bacteria Cancelled Moderate (10-30) H Hyaline Casts Cancelled 1-5/lpf Granular Casts Cancelled 1-5/lpf RBC Casts Cancelled WBC Casts Cancelled Other Casts Cancelled Urine Mucus Cancelled 3+ H Urine Trichomonas Cancelled Urine Yeast Cancelled Urine Sperm Cancelled Ur Culture Indicated? Cancelled Micro UA Comment Cancelled Urine Test Negative (Negative) Ethyl Alcohol ( - 10) mg/dL 01/05/23 01/05/23 01/05/23 Range/Units 18:32 18:32 18:32 WBC 4.7 (4.5-11.0) X10^3/uL RBC 4.52 (4.0-5.2) X10^6/uL Hgb 14.7 (12.0-16.0) g/dL Hct 42.9 (36-46) % MCV 94.8 (80-100) fL MCH 32.5 (26-34) PG MCHC 34.3 (30-36) % RDW 13.3 (11.6-14.8) % Plt Count 174 (150-400) X10^3/uL Neut % (Auto) 68.8 (50-75) % Lymph % (Auto) 15.9 L (25-40) % [place] % (Auto) 10.0 (3-14) % Eos % (Auto) 4.8 H (2-4) % Baso % (Auto) 0.5 (0-2) % Neut # (Auto) 3200 (5341-7164) /uL Lymph # (Auto) 700 L (4671-9792) /uL [place] # (Auto) 500 (0-900) /uL Eos # (Auto) 200 (0-450) /uL Baso # (Auto) 0 (0-100) /uL Sodium 134 L (137-145) mmol/L Potassium 3.9 (3.4-5.1) mmol/L Chloride 97 L (98-107) mmol/L Carbon Dioxide 23 (22-32) mmol/L BUN 10 (7-17) mg/dL Creatinine 0.62 (0.52-1.04) mg/dL Estimated GFR > 60 (>60) mL/min BUN/Creatinine Ratio 16.1 (6-22) Glucose 107 H (70-100) mg/dL Calcium 9.7 (8.4-10.2) mg/dL Total Bilirubin 3.0 H (0.2-1.3) mg/dL AST 89 H (14-36) IU/L ALT 76 H (<35) IU/L Alkaline Phosphatase 61 (38-126) U/L Total Creatine Kinase 96 (30-135) U/L CK-MB (CK-2) TNP CK-MB (CK-2) Rel Index TNP Troponin I < 0.012 (0.01-0.034) ng/mL Total Protein 8.6 H (6.3-8.2) g/dL Albumin 5.1 H (3.5-5.0) g/dL Globulin 3.5 (1.7-4.1) g/dL Albumin/Globulin Ratio 1.5 (1.0-2.8) Lipase 153 (23-300) U/L TSH (0.47-4.68) uIU/mL Urine Color Urine Appearance Urine pH (4.5-8.0) Ur Specific [place] (1.000-1.035) Urine Protein (Negative) Urine Glucose (UA) (Negative) g/dL Urine Ketones (NEGATIVE) Urine Occult Blood (Negative) Urine Nitrate (Negative) Urine Bilirubin (NEGATIVE) Ur Bilirubin Confirm (Negative) Urine Urobilinogen (0.2) E.U./dL Ur Leukocyte Esterase (NEGATIVE) Urine RBC Urine WBC Ur Squamous Epith Cells Ur Transition Epith Cell Ur Renal Epithelial Cell Calcium Oxalate Crystal Uric Acid Crystals Triple Phos Crystals Other Crystals Amorphous Sediment Urine Bacteria Hyaline Casts Granular Casts RBC Casts WBC Casts Other Casts Urine Mucus Urine Trichomonas Urine Yeast Urine Sperm Ur Culture Indicated? Micro UA Comment Urine Test (Negative) Ethyl Alcohol ( - 10) mg/dL 01/05/23 01/05/23 Range/Units 18:32 18:32 WBC (4.5-11.0) X10^3/uL RBC (4.0-5.2) X10^6/uL Hgb (12.0-16.0) g/dL Hct (36-46) % MCV (80-100) fL MCH (26-34) PG MCHC (30-36) % RDW (11.6-14.8) % Plt Count (150-400) X10^3/uL Neut % (Auto) (50-75) % Lymph % (Auto) (25-40) % [place] % (Auto) (3-14) % Eos % (Auto) (2-4) % Baso % (Auto) (0-2) % Neut # (Auto) (4995-9558) /uL Lymph # (Auto) (6618-5848) /uL [place] # (Auto) (0-900) /uL Eos # (Auto) (0-450) /uL Baso # (Auto) (0-100) /uL Sodium (137-145) mmol/L Potassium (3.4-5.1) mmol/L Chloride (98-107) mmol/L Carbon Dioxide (22-32) mmol/L BUN (7-17) mg/dL Creatinine (0.52-1.04) mg/dL Estimated GFR (>60) mL/min BUN/Creatinine Ratio (6-22) Glucose (70-100) mg/dL Calcium (8.4-10.2) mg/dL Total Bilirubin (0.2-1.3) mg/dL AST (14-36) IU/L ALT (<35) IU/L Alkaline Phosphatase (38-126) U/L Total Creatine Kinase (30-135) U/L CK-MB (CK-2) CK-MB (CK-2) Rel Index Troponin I (0.01-0.034) ng/mL Total Protein (6.3-8.2) g/dL Albumin (3.5-5.0) g/dL Globulin (1.7-4.1) g/dL Albumin/Globulin Ratio (1.0-2.8) Lipase (23-300) U/L TSH 3.50 (0.47-4.68) uIU/mL Urine Color Urine Appearance Urine pH (4.5-8.0) Ur Specific [place] (1.000-1.035) Urine Protein (Negative) Urine Glucose (UA) (Negative) g/dL Urine Ketones (NEGATIVE) Urine Occult Blood (Negative) Urine Nitrate (Negative) Urine Bilirubin (NEGATIVE) Ur Bilirubin Confirm (Negative) Urine Urobilinogen (0.2) E.U./dL Ur Leukocyte Esterase (NEGATIVE) Urine RBC Urine WBC Ur Squamous Epith Cells Ur Transition Epith Cell Ur Renal Epithelial Cell Calcium Oxalate Crystal Uric Acid Crystals Triple Phos Crystals Other Crystals Amorphous Sediment Urine Bacteria Hyaline Casts Granular Casts RBC Casts WBC Casts Other Casts Urine Mucus Urine Trichomonas Urine Yeast Urine Sperm Ur Culture Indicated? Micro UA Comment Urine Test (Negative) Ethyl Alcohol < 10 ( - 10) mg/dL MDM Narrative Medical decision making narrative: 42-year-old female with past medical history generalized anxiety disorder, peripheral neuropathy, Duane's disease, alcohol use disorder, fatty liver disease, tremors of the nervous system presents to the ED with 2 months of worsening upper abdominal pain. Concern for GERD versus gastritis versus SBO versus gallbladder disease versus liver disease versus alcohol withdrawal versus UTI versus pyelonephritis versus thyroid disease versus other. Will obtain labs , UA, TSH, urine , CT abdomen pelvis, ultrasound right upper quadrant. UA is positive for UTI, urine bilirubin. HCG negative. All other labs within normal limits. TSH within normal limits. Awaiting ETOH and CT abdomen pelvis. Patient initially appeared more anxious and diaphoretic, however those symptoms improved through the ED course. Patient is now signed out to Dr. Butts. <Cas Butts DO - Last Filed: 01/06/23 01:49> Lab Data Attestation: I reviewed the patient's lab results. Labs: Lab Results 01/05/23 01/05/23 01/05/23 Range/Units 17:30 17:30 17:30 WBC (4.5-11.0) X10^3/uL RBC (4.0-5.2) X10^6/uL Hgb (12.0-16.0) g/dL Hct (36-46) % MCV (80-100) fL MCH (26-34) PG MCHC (30-36) % RDW (11.6-14.8) % Plt Count (150-400) X10^3/uL Neut % (Auto) (50-75) % Lymph % (Auto) (25-40) % [place] % (Auto) (3-14) % Eos % (Auto) (2-4) % Baso % (Auto) (0-2) % Neut # (Auto) (1720-1876) /uL Lymph # (Auto) (9537-2812) /uL [place] # (Auto) (0-900) /uL Eos # (Auto) (0-450) /uL Baso # (Auto) (0-100) /uL Sodium (137-145) mmol/L Potassium (3.4-5.1) mmol/L Chloride (98-107) mmol/L Carbon Dioxide (22-32) mmol/L BUN (7-17) mg/dL Creatinine (0.52-1.04) mg/dL Estimated GFR (>60) mL/min BUN/Creatinine Ratio (6-22) Glucose (70-100) mg/dL Calcium (8.4-10.2) mg/dL Total Bilirubin (0.2-1.3) mg/dL AST (14-36) IU/L ALT (<35) IU/L Alkaline Phosphatase (38-126) U/L Total Creatine Kinase (30-135) U/L CK-MB (CK-2) CK-MB (CK-2) Rel Index Troponin I (0.01-0.034) ng/mL Total Protein (6.3-8.2) g/dL Albumin (3.5-5.0) g/dL Globulin (1.7-4.1) g/dL Albumin/Globulin Ratio (1.0-2.8) Lipase (23-300) U/L TSH (0.47-4.68) uIU/mL Urine Color Dark yellow Urine Appearance Slightly cloudy Urine pH 6.0 (4.5-8.0) Ur Specific [place] 1.025 (1.000-1.035) Urine Protein 1+ H (Negative) Urine Glucose (UA) Negative (Negative) g/dL Urine Ketones 3+ H (NEGATIVE) Urine Occult Blood Negative (Negative) Urine Nitrate Positive H (Negative) Urine Bilirubin 2+ H (NEGATIVE) Ur Bilirubin Confirm Positive H (Negative) Urine Urobilinogen 1.0 (0.2) E.U./dL Ur Leukocyte Esterase Negative (NEGATIVE) Urine RBC Cancelled None seen Urine WBC Cancelled 5-10/hpf H Ur Squamous Epith Cells Cancelled 5-10 /hpf H Ur Transition Epith Cell Cancelled Ur Renal Epithelial Cell Cancelled Calcium Oxalate Crystal Cancelled Uric Acid Crystals Cancelled Triple Phos Crystals Cancelled Other Crystals Cancelled Amorphous Sediment Cancelled 1+ Urine Bacteria Cancelled Moderate (10-30) H Hyaline Casts Cancelled 1-5/lpf Granular Casts Cancelled 1-5/lpf RBC Casts Cancelled WBC Casts Cancelled Other Casts Cancelled Urine Mucus Cancelled 3+ H Urine Trichomonas Cancelled Urine Yeast Cancelled Urine Sperm Cancelled Ur Culture Indicated? Cancelled Micro UA Comment Cancelled Urine Test Negative (Negative) Ethyl Alcohol ( - 10) mg/dL 01/05/23 01/05/23 01/05/23 Range/Units 18:32 18:32 18:32 WBC 4.7 (4.5-11.0) X10^3/uL RBC 4.52 (4.0-5.2) X10^6/uL Hgb 14.7 (12.0-16.0) g/dL Hct 42.9 (36-46) % MCV 94.8 (80-100) fL MCH 32.5 (26-34) PG MCHC 34.3 (30-36) % RDW 13.3 (11.6-14.8) % Plt Count 174 (150-400) X10^3/uL Neut % (Auto) 68.8 (50-75) % Lymph % (Auto) 15.9 L (25-40) % [place] % (Auto) 10.0 (3-14) % Eos % (Auto) 4.8 H (2-4) % Baso % (Auto) 0.5 (0-2) % Neut # (Auto) 3200 (3317-9951) /uL Lymph # (Auto) 700 L (5683-4064) /uL [place] # (Auto) 500 (0-900) /uL Eos # (Auto) 200 (0-450) /uL Baso # (Auto) 0 (0-100) /uL Sodium 134 L (137-145) mmol/L Potassium 3.9 (3.4-5.1) mmol/L Chloride 97 L (98-107) mmol/L Carbon Dioxide 23 (22-32) mmol/L BUN 10 (7-17) mg/dL Creatinine 0.62 (0.52-1.04) mg/dL Estimated GFR > 60 (>60) mL/min BUN/Creatinine Ratio 16.1 (6-22) Glucose 107 H (70-100) mg/dL Calcium 9.7 (8.4-10.2) mg/dL Total Bilirubin 3.0 H (0.2-1.3) mg/dL AST 89 H (14-36) IU/L ALT 76 H (<35) IU/L Alkaline Phosphatase 61 (38-126) U/L Total Creatine Kinase 96 (30-135) U/L CK-MB (CK-2) TNP CK-MB (CK-2) Rel Index TNP Troponin I < 0.012 (0.01-0.034) ng/mL Total Protein 8.6 H (6.3-8.2) g/dL Albumin 5.1 H (3.5-5.0) g/dL Globulin 3.5 (1.7-4.1) g/dL Albumin/Globulin Ratio 1.5 (1.0-2.8) Lipase 153 (23-300) U/L TSH (0.47-4.68) uIU/mL Urine Color Urine Appearance Urine pH (4.5-8.0) Ur Specific [place] (1.000-1.035) Urine Protein (Negative) Urine Glucose (UA) (Negative) g/dL Urine Ketones (NEGATIVE) Urine Occult Blood (Negative) Urine Nitrate (Negative) Urine Bilirubin (NEGATIVE) Ur Bilirubin Confirm (Negative) Urine Urobilinogen (0.2) E.U./dL Ur Leukocyte Esterase (NEGATIVE) Urine RBC Urine WBC Ur Squamous Epith Cells Ur Transition Epith Cell Ur Renal Epithelial Cell Calcium Oxalate Crystal Uric Acid Crystals Triple Phos Crystals Other Crystals Amorphous Sediment Urine Bacteria Hyaline Casts Granular Casts RBC Casts WBC Casts Other Casts Urine Mucus Urine Trichomonas Urine Yeast Urine Sperm Ur Culture Indicated? Micro UA Comment Urine Test (Negative) Ethyl Alcohol ( - 10) mg/dL 01/05/23 01/05/23 Range/Units 18:32 18:32 WBC (4.5-11.0) X10^3/uL RBC (4.0-5.2) X10^6/uL Hgb (12.0-16.0) g/dL Hct (36-46) % MCV (80-100) fL MCH (26-34) PG MCHC (30-36) % RDW (11.6-14.8) % Plt Count (150-400) X10^3/uL Neut % (Auto) (50-75) % Lymph % (Auto) (25-40) % [place] % (Auto) (3-14) % Eos % (Auto) (2-4) % Baso % (Auto) (0-2) % Neut # (Auto) (3901-6006) /uL Lymph # (Auto) (4602-7145) /uL [place] # (Auto) (0-900) /uL Eos # (Auto) (0-450) /uL Baso # (Auto) (0-100) /uL Sodium (137-145) mmol/L Potassium (3.4-5.1) mmol/L Chloride (98-107) mmol/L Carbon Dioxide (22-32) mmol/L BUN (7-17) mg/dL Creatinine (0.52-1.04) mg/dL Estimated GFR (>60) mL/min BUN/Creatinine Ratio (6-22) Glucose (70-100) mg/dL Calcium (8.4-10.2) mg/dL Total Bilirubin (0.2-1.3) mg/dL AST (14-36) IU/L ALT (<35) IU/L Alkaline Phosphatase (38-126) U/L Total Creatine Kinase (30-135) U/L CK-MB (CK-2) CK-MB (CK-2) Rel Index Troponin I (0.01-0.034) ng/mL Total Protein (6.3-8.2) g/dL Albumin (3.5-5.0) g/dL Globulin (1.7-4.1) g/dL Albumin/Globulin Ratio (1.0-2.8) Lipase (23-300) U/L TSH 3.50 (0.47-4.68) uIU/mL Urine Color Urine Appearance Urine pH (4.5-8.0) Ur Specific [place] (1.000-1.035) Urine Protein (Negative) Urine Glucose (UA) (Negative) g/dL Urine Ketones (NEGATIVE) Urine Occult Blood (Negative) Urine Nitrate (Negative) Urine Bilirubin (NEGATIVE) Ur Bilirubin Confirm (Negative) Urine Urobilinogen (0.2) E.U./dL Ur Leukocyte Esterase (NEGATIVE) Urine RBC Urine WBC Ur Squamous Epith Cells Ur Transition Epith Cell Ur Renal Epithelial Cell Calcium Oxalate Crystal Uric Acid Crystals Triple Phos Crystals Other Crystals Amorphous Sediment Urine Bacteria Hyaline Casts Granular Casts RBC Casts WBC Casts Other Casts Urine Mucus Urine Trichomonas Urine Yeast Urine Sperm Ur Culture Indicated? Micro UA Comment Urine Test (Negative) Ethyl Alcohol < 10 ( - 10) mg/dL Imaging Data CT scan - abdomen/pelvis: Radiologist's Impression: No acute findings US - abdomen: Radiologist's Impression: Cholelithiasis MDM Narrative Medical decision making narrative: 42-year-old female with past medical history generalized anxiety disorder, peripheral neuropathy, Duane's disease, alcohol use disorder, fatty liver disease, tremors of the nervous system presents to the ED with 2 months of worsening upper abdominal pain. Concern for GERD versus gastritis versus SBO versus gallbladder disease versus liver disease versus alcohol withdrawal versus UTI versus pyelonephritis versus thyroid disease versus other. Will obtain labs, UA, TSH, urine , CT abdomen pelvis, ultrasound right upper quadrant. UA is positive for UTI, urine bilirubin. HCG negative. All other labs within normal limits. TSH within normal limits. Awaiting ETOH and CT abdomen pelvis. Patient initially appeared more anxious and diaphoretic, however those symptoms improved through the ED course. Patient is now signed out to Dr. Butts. Dr Butts: Received turned over. Review patient's history and physical and workup up to this point. Patient's CT scan of the abdomen shows no acute pathology. It does show some thickening of the bladder wall in the patient states that she is having some UTI like symptoms. Low suspicion for pyelonephritis given her exam today. Given her urinalysis in the CT result in her symptoms we will treat her with antibiotics. She was given 1st dose here in the emergency department and a prescription was sent to the pharmacy of her choice. Ultrasound does show cholelithiasis without signs of acute cholecystitis. Low suspicion that this is the cause of what brought her into the emergency department today. She is feeling somewhat better. Will hold on further workup and discharge patient home. She was given return precautions. She expressed understanding and agreement. Discharge Plan Departure Patient Disposition: Home Clinical Impression: Urinary tract infection, Abdominal pain Instructions: DI for Urinary Tract Infection (UTI), DI for Abdominal Pain-Adult Activity Restrictions/Additional Instructions: A prescription for antibiotics was sent to [facility] per your request. Please start taking them as directed. Contact your primary doctor for a follow-up. You can also consider taking an anti-gas medication like we discussed. This can be purchased [id number]. Return to the emergency department for new symptoms. Prescriptions: New nitrofurantoin monohyd/m-cryst [Macrobid] 100 mg capsule 100 mg PO Q12H 5 Days Qty: 9 0RF Rx Instructions: must administer with a meal/food No Action folic acid 1 mg tablet See Rx Instructions .ROUTE .COMPLEX Qty: 30 1RF Dose Instruction: TAKE ONE TABLET BY MOUTH ONE TIME DAILY Rx Instructions: TAKE ONE TABLET BY MOUTH ONE TIME DAILY duloxetine 30 mg capsule,delayed release(DR/EC) 30 mg PO DAILY Qty: 90 1RF trazodone 50 mg tablet 25 mg PO BEDTIME Qty: 30 1RF thiamine HCl (vitamin B1) 100 mg tablet 100 mg PO DAILY Qty: 30 3RF hydroxyzine pamoate 25 mg capsule 25 mg PO Q6HR PRN (Reason: Anxiety) Qty: 60 1RF Referrals: Daron Chi DO [Primary Care Provider] - Stand Alone Forms: Patient Portal/API
[2023-01-05 19:27] LABS: Troponin I < 0.012 ng/mL (0.01-0.034)
[2023-01-05 20:00] VITALS: BP 149/95; PULSE 74; RESP 20; O2SAT 98
--- NOTE | 2023-01-05 20:34 | PC.NURSE ---
With pt's permission, this RN gave pt's SO, Jose Murdock, an update on pt's care.
[2023-01-05 20:49] LABS: Ethanol (ETOH) < 10 mg/dL
[2023-01-05] MEDS: NITROFURANTOIN ER 100 MG CAPSULE PO (21:51)
[2023-01-05 22:01] VITALS: BP 138/91; PULSE 75; RESP 20; O2SAT 98
== END 2023-01-05 22:03 | disposition home or self-care (01) ==
PROVIDERS: Student in an Organized Health Care Education/Training Program; Emergency Provider Emergency Medicine; PCP Family Medicine
DX: N39.0 Urinary tract infection, site not specified (principal); R10.13 Epigastric pain
CPT/HCPCS: 36415; 74177; 76705; 80053; 80320; 81001; 81025; 82550; 83690; 84443; 84484; 85025; 87086; 93005; 99283; 99284

== ENCOUNTER 2023-03-03 12:33 | Day surgery (SDC) | payer OTHER, MEDICAID, SELFPAY ==
[2023-02-25 14:25] VITALS: BMI 23.8
[2023-03-03] VITALS (16 sets, daily range): BP systolic 101–198; BP diastolic 46–96; PULSE 74–103; RESP 12–21; TEMP 36.1–36.9; O2SAT 93–98; BMI 21.0
--- NOTE | 2023-03-03 | PATH_ITS ---
[facility] Accession Number: [id number] No. of containers..01 Tissue . 01 Material submitted: . gallbladder - GALLBLADDER . 01 Diagnosis: Gallbladder, Cholecystectomy: Cholelithiasis and changes consistent with chronic cholecystitis. Benign pericystic lymph node. Negative for dysplasia and neoplasia. MRV 03/09/2023 1542 Local . 01 Electronically signed: . Trini Oneil MD, Pathologist NPI- [id number] . 01 Gross description: . The specimen is received in formalin labeled with the patient's name, , and gallbladder, and consists of an intact gallbladder measuring 6.6 x 3.5 x 3.5 cm. The serosa is green and smooth while the hepatic surface is rough and unremarkable. The cystic duct is received closed with a clamp, is inked blue, and a lloyd lymph node candidate is identified measuring 0.3 cm in greatest dimension. The lumen contains dark green viscous bile and multiple small black roughened calculi measuring up to 0.1 cm in greatest dimension. The mucosa is dark green and velvety with no pinpoint yellow areas of discoloration, polyps or lesions identified. The browne average 0.2 cm thick. Manager Helpdesk sections to include the cystic duct margin, lymph node candidate, and full-thickness sections are submitted in cassette A1. ([id number]) /MRV 03/04/2023 1246 Local . 01 Pathologist provided ICD-10: K81.1 . 01 CPT . 433922 Specimen Comment: A courtesy copy of this report has been sent to [phone] Performed at: 01 [facility] [address] [place] [address] Suite [facility], [place], [place] [id number] MD Suleiman Barrera MD Phone: [phone]
[2023-03-03] MEDS: LACTATED RINGERS 1,000 ML 100 ML IV ×2 (13:23→14:42)
--- NOTE | 2023-03-03 14:04 | PM.PREOP ---
Pre-operative Note Interval Note History & Physical reviewed/Exam performed by Physician: Yes Changes to H&P: No
[2023-03-03] MEDS: ONDANSETRON 4 MG/2 ML INJ IV ×3 (14:11→16:42)
[2023-03-03] MEDS: CEFAZOLIN 2 GM/100 ML PREMIX 100 ML IV (14:45)
--- NOTE | 2023-03-03 15:04 | SUR.OPER ---
Supine on padded OR bed, head on pillow, safety belt at thigh, left arm padded and tucked at side. Right arm secured on padded arm board <90 degrees abduction. Legs uncrossed. Padded footboard in place. Tape over blanket to secure lower legs.
[2023-03-03] MEDS: BUPIVACAINE 0.25% (PF) VIAL 30 ML INJ (15:16)
[2023-03-03] MEDS: HYDROMORPHONE 2 MG INJ IV ×4 (15:58→16:20)
[2023-03-03] MEDS: hydrOXYzine 50 MG/ML INJ 25 MG IM (16:07)
[2023-03-03] MEDS: fentaNYL 100 MCG/2 ML INJ IV (16:29)
[2023-03-03] MEDS: LORazepam 2 MG/ML INJ 0.5 MG IV (17:15)
--- NOTE | 2023-03-04 11:07 | P.OP_ITS ---
Operative Date/Time/Diagnoses Date of procedure: 03/03/23 Time of procedure: 11:07 Pre-op diagnosis: Biliary colic Post-op diagnosis: same Procedure & Clinicians Procedure: Laparoscopic cholecystectomy Same procedure as scheduled: Yes Indications: 42-year-old woman with symptoms and radiographic findings suggestive of biliary colic Surgeon: Jourdan Madden Senior Informatica Developer: Marino Jordan Operative Notes Findings: No evidence of acute cholecystitis. Critical view of safety established. Specimen(s): other (Gallbladder) Estimated Blood Loss (mL): 20 Procedure in detail: The patient was placed supine on the table and bilateral lower extremity compression devices were applied. Anesthesia was induced they were intubated with an endotracheal tube and received 2g of Ancef. A time-out was performed. They were prepped and draped in sterile fashion. An infraumbilical incision was made. The fascia was elevated incised and the abdomen was entered atraumatically. A blunt tip 12mm balloon trocar was then inserted, pneumoperitoneum was established and inspection of the abdomen demonstrated no evidence of injury. They were placed head up and right side up and then a 11 mm port was placed high in the epigastrium and two 5mm in the right upper quadrant. The liver was normal in its appearance without evidence of cirrhosis. The gallbladder was largely unremarkable there was no evidence of acute cholecystitis. The gallbladder was grasped by the fundus and retracted over the liver and retracted laterally by the infundibulum. Using electrocautery the lateral plane between the gallbladder and the liver was opened towards the fundus. The gallbladder was then retracted laterally and the medial plane was developed in the same manner. With the gallbladder mobilized the bottom of the cystic plate was visualized. The hepatocystic triangle was meticulosly skeletonized with blunt dissection of fat and fibrous tissue from both the front and the back. Only two structures were then clearly seen entering the gallbladder the cystic duct and the cystic artery. With the critical view of safety fully established the cystic duct was clipped twice proximally and once distally using the 10 mm Weck hemoclip applied under direct visualization and then sharply divided. The cystic artery was divided in the same fashion. The gallbladder was removed from the liver bed using electro cautery. The liver bed was then inspected for hemostasis and this was achieved. The abdomen was irrigated with sterile saline and inspection was made that showed the clips in good position. The specimen was removed using Endo-Catch. The abdomen was desufflated. The umbilical fascia was closed with 0 Vicryl in a [id number] fashion under direct visualization. Skin incisions were irrigated and closed with 4-0 Monocryl. 30 ml of 0.25% bupivacaine was infiltrated into the subcutaneous tissue of the incisions. The wounds were sealed with Dermabond. Patient emerged from anesthesia was extubated and transferred to recovery in stable condition. The sponge and instrument count at the end of the operation was correct. The assistance of Kan KITCHEN was essential for providing safe and expedient exposure to facilitate this case. Post-operative Condition: stable Disposition: same day surgery
== END 2023-03-03 18:51 | disposition home or self-care (01) ==
PROVIDERS: PCP Family Medicine; Referring Provider Surgery; Visit Provider Surgery
PROC: 0FT44ZZ Resection of Gallbladder, Percutaneous Endoscopic Approach (ICD-10-PCS; CPT 47562; principal; 2023-03-03 13:45)
DX: K80.20 Calculus of gallbladder without cholecystitis without obstruction (principal)
CPT/HCPCS: 47562; 81025; J0690; J1170; J2060; J2250; J2405; J3010; J3410

== ENCOUNTER → 2023-04-19 12:36 | Outpatient (CLI) | payer OTHER, MEDICAID, SELFPAY ==
[2023-02-25 14:25] VITALS: BMI 23.8
[2023-04-19 13:24] LABS: Add Manual Diff / Slide Review NO; Basophils Absolute Auto 100 /uL (0-100); Basophils Percent Auto 1.4 % (0-2); Eosinophils Absolute Auto 100 /uL (0-450); Eosinophils Percent Auto 3.4 % (2-4); Hemoglobin 13.9 g/dL (12.0-16.0); Lymphocytes Absolute Auto 1200 /uL (1100-4500); Lymphocytes Percent Auto 30.2 % (25-40); Mean Corpuscular HGB Conc 33.9 % (30-36); Mean Corpuscular Hemoglobin 32.3 PG (26-34); Mean Corpuscular Volume 95.5 fL (80-100); Monocytes Absolute Auto 500 /uL (0-900); Monocytes Percent Auto 11.5 % (3-14); Neutrophils Absolute Auto 2200 /uL (1500-7000); Neutrophils Percent Auto 53.5 % (50-75); Platelet Count 163 X10^3/uL (150-400); Red Cell Distribution Width 14.4 % (11.6-14.8); White Blood Cell Count 4.1 X10^3/uL (4.5-11.0)
[2023-04-19 13:41] LABS: Alanine Aminotransferase 90 IU/L (<35); Albumin 4.9 g/dL (3.5-5.0); Albumin Globulin Ratio 1.4 (1.0-2.8); Alkaline Phosphatase 55 U/L (38-126); Aspartate Aminotransferase 136 IU/L (14-36); Bilirubin Total 0.8 mg/dL (0.2-1.3); Blood Urea Nitrogen 9 mg/dL (7-17); Calcium 8.8 mg/dL (8.4-10.2); Carbon Dioxide 26 mmol/L (22-32); Chloride 101 mmol/L (98-107); Estimated Glomerular Filt Rate > 60 mL/min (>60); Globulin 3.4 g/dL (1.7-4.1); Glucose 84 mg/dL (70-100); HEMOLYSIS < 15 (0-50); Potassium 3.7 mmol/L (3.4-5.1); Sodium 140 mmol/L (137-145); Total Protein 8.3 g/dL (6.3-8.2)
[2023-04-19 14:11] LABS: TSH w/ Reflex to FT4 3.48 uIU/mL (0.47-4.68)
[2023-04-19 14:29] LABS: Vitamin B12 749 pg/mL (239-931)
[2023-04-20 07:43] LABS: x Labcorp Estim. Avg Glu (eAG) 91 mg/dL (.); x Labcorp Hemoglobin A1c 4.8 % (4.8-5.6)
== END ==
PROVIDERS: PCP Family Medicine; Referring Provider Family Medicine; Visit Provider Family Medicine
DX: F41.1 Generalized anxiety disorder (principal); F51.04 Psychophysiologic insomnia; G62.9 Polyneuropathy, unspecified; K80.20 Calculus of gallbladder without cholecystitis without obstruction; N63.11 Unspecified lump in the right breast, upper outer quadrant; R73.03 Prediabetes
CPT/HCPCS: 36415; 80053; 82607; 83036; 84443; 85025

== ENCOUNTER 2024-04-23 22:21 | Emergency (ER) | payer OTHER, MEDICAID, SELFPAY ==
[2023-02-25 14:25] VITALS: BMI 23.8
[2024-04-23 22:31] VITALS: BP 136/87; PULSE 79; RESP 16; TEMP 36.1; O2SAT 95
[2024-04-23 23:30] VITALS: BP 116/81; PULSE 71; RESP 16; O2SAT 95
[2024-04-24] VITALS (12 sets, daily range): BP systolic 78–146; BP diastolic 52–73; PULSE 61–89; RESP 16–22; O2SAT 90–98
--- NOTE | 2024-04-24 00:17 | ED.ALCOHOL ---
HPI - Alcohol <Maribel Camejo MD - Last Filed: 04/29/24 06:58> General Chief Complaint: Toxicology Problem Stated Complaint: nerves bad/motor control issues Time Seen by Provider: 04/23/24 23:46 Mode of arrival: Wheelchair History of Present Illness HPI narrative: 43-year-old female with history of anxiety and depression presents requesting help with alcohol detox. Patient states that she has been under multiple stressors in her life recently and in order to cope has been increasing her alcohol intake. She states that she was concerned for her health and would like to go to detox. Reports drinking ?two 40s of beer per day. Last drink 3-4 hours prior to arrival. Related Data Previous Rx's Medication Instructions Recorded propranolol 20 mg tablet 20 mg PO BID #180 tabs 04/19/23 Allergies Allergy/AdvReac Type Severity Reaction Status Date / Time sulfamethoxazole Allergy Severe Anaphylaxis Verified 04/19/23 11:49 [From Bactrim] trimethoprim [From Bactrim] Allergy Severe Anaphylaxis Verified 04/19/23 11:49 Patient History <Maribel Camejo MD - Last Filed: 04/29/24 06:58> Medical History Alcohol use disorder Cholelithiasis Insomnia Generalized anxiety disorder Peripheral neuropathy Breast mass in female Duane's disease Elevated blood protein Alcohol use Fatty liver disease, nonalcoholic Elevated liver enzymes Tremors of nervous system (08/2020) Shortness of breath (08/2020) Acquired hypothyroidism Patient denies medical problems Family History Father Diabetes mellitus Mother Cancer Grandfather Kidney failure Grandmother Cancer Social History household members: significant other and children Smoking Status: Former smoker second hand exposure: Yes alcohol intake: current substance use type: does not use Smoking Status: Former smoker alcohol intake frequency: a few times a week Alcohol type: beer Substance Use Type: does not use Exam <Maribel Camejo MD - Last Filed: 04/29/24 06:58> Initial Vital Signs Initial Vital Signs: Vital Signs Temperature 97 F L 04/23/24 22:31 Pulse Rate 79 06/09/24 22:31 Respiratory Rate 16 04/23/24 22:31 Blood Pressure 136/87 04/23/24 22:31 Pulse Oximetry 95 04/23/24 22:31 Oxygen Delivery Method Room Air 04/23/24 22:31 Const: Awake, alert, no acute distress Cardiac: regular rate, regular rhythm RESP: unlabored, clear bilaterally, no wheezing Skin: Warm, Dry, intact, no rashes Neuro: AO x3, CN II-XII grossly intact, moves all extremities Psych: Anxious affect, congruent mood, denying suicidal or homicidal ideation <Maribel Marte DO - Last Filed: 04/24/24 19:08> Initial Vital Signs Initial Vital Signs: Vital Signs Temperature 97 F L 04/23/24 22:31 Pulse Rate 79 04/23/24 22:31 Respiratory Rate 16 04/23/24 22:31 Blood Pressure 136/87 04/23/24 22:31 Pulse Oximetry 95 04/23/24 22:31 Oxygen Delivery Method Room Air 04/23/24 22:31 Course <Maribel Camejo MD - Last Filed: 04/29/24 06:58> Orders Ordered: Discontinued Medications Acetaminophen (Acetaminophen 325 Mg Tablet) 650 mg PO NOW ONE Stop: 04/24/24 01:39 Last Admin: 04/24/24 01:47 Dose: 650 mg Documented By: AB Folic Acid (Folic Acid 1 Mg Tablet) 1 mg PO NOW ONE Stop: 04/24/24 00:18 Last Admin: 04/24/24 00:51 Dose: 1 mg Documented By: AB Thiamine HCl 200 mg/ Sodium (Chloride) 102 mls @ 408 mls/hr IV NOW ONE Stop: 04/24/24 00:18 Last Infusion: 04/24/24 01:12 Dose: Infused Documented By: Admin: 04/24/24 00:48 Dose: 408 mls/hr Documented By: AB Sodium Chloride (Normal Saline 0.9%) 1,000 mls @ 1,000 mls/hr IV BOLUS ONE Stop: 04/24/24 01:16 Last Infusion: 04/24/24 01:36 Dose: Infused Documented By: Admin: 04/24/24 00:48 Dose: 1,000 mls/hr Documented By: AB Lorazepam (Lorazepam 2 Mg/Ml Inj) 1 mg IV NOW ONE Stop: 04/24/24 01:38 Last Admin: 04/24/24 01:47 Dose: 1 mg Documented By: AB Phenobarbital (Phenobarbital 65 Mg/Ml Vial) 130 mg IV NOW ONE Stop: 04/24/24 07:37 Last Admin: 04/24/24 07:39 Dose: 130 mg Documented By: RB Phenobarbital (Phenobarbital 65 Mg/Ml Vial) 130 mg IV NOW ONE Stop: 04/24/24 07:40 Last Admin: 04/24/24 07:46 Dose: Not Given Documented By: RB Vital Signs Vital signs: Vital Signs - 8 hr 04/24/24 12:00 Pulse Rate 78 Respiratory Rate 16 Blood Pressure 117/68 Pulse Oximetry 98 Oxygen Delivery Method Room Air <Maribel Marte DO - Last Filed: 04/24/24 19:08> Orders Ordered: Discontinued Medications Acetaminophen (Acetaminophen 325 Mg Tablet) 650 mg PO NOW ONE Stop: 04/24/24 01:39 Last Admin: 04/24/24 01:47 Dose: 650 mg Documented By: AB Folic Acid (Folic Acid 1 Mg Tablet) 1 mg PO NOW ONE Stop: 04/24/24 00:18 Last Admin: 04/24/24 00:51 Dose: 1 mg Documented By: AB Thiamine HCl 200 mg/ Sodium (Chloride) 102 mls @ 408 mls/hr IV NOW ONE Stop: 04/24/24 00:18 Last Infusion: 04/24/24 01:12 Dose: Infused Documented By: Admin: 04/24/24 00:48 Dose: 408 mls/hr Documented By: AB Sodium Chloride (Normal Saline 0.9%) 1,000 mls @ 1,000 mls/hr IV BOLUS ONE Stop: 04/24/24 01:16 Last Infusion: 04/24/24 01:36 Dose: Infused Documented By: Admin: 04/24/24 00:48 Dose: 1,000 mls/hr Documented By: AB Lorazepam (Lorazepam 2 Mg/Ml Inj) 1 mg IV NOW ONE Stop: 04/24/24 01:38 Last Admin: 04/24/24 01:47 Dose: 1 mg Documented By: AB Phenobarbital (Phenobarbital 65 Mg/Ml Vial) 130 mg IV NOW ONE Stop: 04/24/24 07:37 Last Admin: 04/24/24 07:39 Dose: 130 mg Documented By: RB Phenobarbital (Phenobarbital 65 Mg/Ml Vial) 130 mg IV NOW ONE Stop: 04/24/24 07:40 Last Admin: 04/24/24 07:46 Dose: Not Given Documented By: JOAN Vital Signs Vital signs: Vital Signs - 8 hr 04/24/24 12:00 Pulse Rate 78 Respiratory Rate 16 Blood Pressure 117/68 Pulse Oximetry 98 Oxygen Delivery Method Room Air MDM - Alcohol <Maribel Camejo MD - Last Filed: 04/29/24 06:58> Differential Diagnosis Differential diagnosis: Likely hypomagnesemia, alcohol intoxication and alcohol withdrawal syndrome Lab Data 04/24/24 00:40 04/24/24 00:40 Labs: Lab Results 04/24/24 04/24/24 Range/Units 00:30 00:40 WBC 4.9 (4.5-11.0) X10^3/uL RBC 4.49 (4.0-5.2) X10^6/uL Hgb 14.7 (12.0-16.0) g/dL Hct 43.6 (36-46) % MCV 97.0 (80-100) fL MCH 32.7 (26-34) PG MCHC 33.7 (30-36) % RDW 13.9 (11.6-14.8) % Plt Count 218 (150-400) X10^3/uL Neut % (Auto) 47.5 L (50-75) % Lymph % (Auto) 37.0 (25-40) % Garvin % (Auto) 9.3 (3-14) % Eos % (Auto) 5.8 H (2-4) % Baso % (Auto) 0.4 (0-2) % Neut # (Auto) 2300 (4158-0504) /uL Lymph # (Auto) 1800 (6728-2244) /uL Garvin # (Auto) 500 (0-900) /uL Eos # (Auto) 300 (0-450) /uL Baso # (Auto) 0 (0-100) /uL Sodium 147 H (137-145) mmol/L Potassium 3.8 (3.4-5.1) mmol/L Chloride 109 H (98-107) mmol/L Carbon Dioxide 30 (22-32) mmol/L BUN 9 (7-17) mg/dL Creatinine 0.59 (0.52-1.04) mg/dL Estimated GFR > 60 (>60) mL/min BUN/Creatinine Ratio 15.3 (6-22) Glucose 94 (70-100) mg/dL Calcium 8.7 (8.4-10.2) mg/dL Total Bilirubin 0.5 (0.2-1.3) mg/dL AST 100 H (14-36) IU/L ALT 64 H (<35) IU/L Alkaline Phosphatase 62 (38-126) U/L Total Protein 8.1 (6.3-8.2) g/dL Albumin 4.7 (3.5-5.0) g/dL Globulin 3.4 (1.7-4.1) g/dL Albumin/Globulin Ratio 1.4 (1.0-2.8) U Opiates 300ng/mL cut Negative (Negative) Ur Oxycodone Screen Negative (Negative) Urine Methadone Screen Negative (Negative) Ur Barbiturates Screen Negative (Negative) U Tricyclic Antidepress Negative (Negative) Ur Phencyclidine Scrn Negative (Negative) Ur Amphetamines Screen Negative (Negative) U Methamphetamines Scrn Negative (Negative) Ur MDMA Scrn (Ecstasy) Negative (Negative) U Benzodiazepines Scrn Negative (Negative) Urine Cocaine Screen Negative (Negative) U Marijuana (THC) Screen Negative (Negative) Urine pH Normal (Normal) Urine Specific [place] Normal (Normal) Ethyl Alcohol 365 H ( - 10) mg/dL Ur Creatinine Normal (Normal) Point of Care Testing Test Results Negative Urine Dip Bedside Urine Glucose Negative Bedside Urine Bilirubin - Negative Bedside Urine Ketone - Negative Urine Specific [place] 1.015 Bedside Urine Occult Blood - Negative Bedside Urine pH 5.5 Bedside Urine Protein - Negative Bedside Urine Urobilinogen - Negative Bedside Urine Nitrite - Negative Bedside Urine Leukocytes - Negative Esterase MDM Narrative Medical decision making narrative: Nontoxic patient requesting help in getting to alcohol detox. States that she has never had alcohol withdrawal seizures before. Does not appear to be clinically withdrawing. [facility] contacted for available beds. Patient completed phone screen. Thiamine and folic acid ordered. Laboratory work is significant for alcohol level 365, drug screen negative. Patient completed phone screen, no word from [facility], nursing staff state unable to reach overnight provider [phone] -still no word from [facility]. No signs of withdrawal overnight. Care of patient signed to Dr. Marte at 0700 Dr. Marte 04/24/24: Patient signed out to myself. Have not heard back from [facility]. Patient's labs and imaging were reviewed. Patient was seen independently by myself. Patient is seeking detox. She has not currently have any withdrawal symptoms but states she will often get nausea vomiting, dizziness. She states she has had hallucinations 1 time. She has never had any seizures. We will go ahead and given dose of phenobarbital as her ETOH was 365 at 0040. She does not feel symptomatic currently but will cover her. Patient did have some mild tachycardia symptoms have improved after phenobarbital. She is felt safe for disposition. Patient did receive bed at a 2. They asked that she arrived via private auto. Patient was discharged in stable condition. <Maribel Marte, DO - Last Filed: 04/24/24 19:08> Lab Data Labs: Lab Results 04/24/24 04/24/24 Range/Units 00:30 00:40 WBC 4.9 (4.5-11.0) X10^3/uL RBC 4.49 (4.0-5.2) X10^6/uL Hgb 14.7 (12.0-16.0) g/dL Hct 43.6 (36-46) % MCV 97.0 (80-100) fL MCH 32.7 (26-34) PG MCHC 33.7 (30-36) % RDW 13.9 (11.6-14.8) % Plt Count 218 (150-400) X10^3/uL Neut % (Auto) 47.5 L (50-75) % Lymph % (Auto) 37.0 (25-40) % Garvin % (Auto) 9.3 (3-14) % Eos % (Auto) 5.8 H (2-4) % Baso % (Auto) 0.4 (0-2) % Neut # (Auto) 2300 (0464-2474) /uL Lymph # (Auto) 1800 (1161-1475) /uL Garvin # (Auto) 500 (0-900) /uL Eos # (Auto) 300 (0-450) /uL Baso # (Auto) 0 (0-100) /uL Sodium 147 H (137-145) mmol/L Potassium 3.8 (3.4-5.1) mmol/L Chloride 109 H (98-107) mmol/L Carbon Dioxide 30 (22-32) mmol/L BUN 9 (7-17) mg/dL Creatinine 0.59 (0.52-1.04) mg/dL Estimated GFR > 60 (>60) mL/min BUN/Creatinine Ratio 15.3 (6-22) Glucose 94 (70-100) mg/dL Calcium 8.7 (8.4-10.2) mg/dL Total Bilirubin 0.5 (0.2-1.3) mg/dL AST 100 H (14-36) IU/L ALT 64 H (<35) IU/L Alkaline Phosphatase 62 (38-126) U/L Total Protein 8.1 (6.3-8.2) g/dL Albumin 4.7 (3.5-5.0) g/dL Globulin 3.4 (1.7-4.1) g/dL Albumin/Globulin Ratio 1.4 (1.0-2.8) U Opiates 300ng/mL cut Negative (Negative) Ur Oxycodone Screen Negative (Negative) Urine Methadone Screen Negative (Negative) Ur Barbiturates Screen Negative (Negative) U Tricyclic Antidepress Negative (Negative) Ur Phencyclidine Scrn Negative (Negative) Ur Amphetamines Screen Negative (Negative) U Methamphetamines Scrn Negative (Negative) Ur MDMA Scrn (Ecstasy) Negative (Negative) U Benzodiazepines Scrn Negative (Negative) Urine Cocaine Screen Negative (Negative) U Marijuana (THC) Screen Negative (Negative) Urine pH Normal (Normal) Urine Specific [place] Normal (Normal) Ethyl Alcohol 365 H ( - 10) mg/dL Ur Creatinine Normal (Normal) Point of Care Testing Test Results Negative Urine Dip Bedside Urine Glucose Negative Bedside Urine Bilirubin - Negative Bedside Urine Ketone - Negative Urine Specific [place] 1.015 Bedside Urine Occult Blood - Negative Bedside Urine pH 5.5 Bedside Urine Protein - Negative Bedside Urine Urobilinogen - Negative Bedside Urine Nitrite - Negative Bedside Urine Leukocytes - Negative Esterase MDM Narrative Medical decision making narrative: Nontoxic patient requesting help in getting to alcohol detox. States that she has never had alcohol withdrawal seizures before. Does not appear to be clinically withdrawing. [facility] contacted for available beds. Patient completed phone screen. Thiamine and folic acid ordered. Laboratory work is significant for alcohol level 365, drug screen negative. Patient completed phone screen, no word from [facility], nursing staff state unable to reach overnight provider [phone] -still no word from [facility]. No signs of withdrawal overnight. Dr. Marte 04/24/24: Patient signed out to myself. Have not heard back from [facility]. Patient's labs and imaging were reviewed. Patient was seen independently by myself. Patient is seeking detox. She has not currently have any withdrawal symptoms but states she will often get nausea vomiting, dizziness. She states she has had hallucinations 1 time. She has never had any seizures. We will go ahead and given dose of phenobarbital as her ETOH was 365 at 0040. She does not feel symptomatic currently but will cover her. Patient did have some mild tachycardia symptoms have improved after phenobarbital. She is felt safe for disposition. Patient did receive bed at a 2. They asked that she arrived via private auto. Patient was discharged in stable condition. Discharge Plan Departure Patient Disposition: Home Clinical Impression: Alcohol use disorder Activity Restrictions/Additional Instructions: Go directly to [facility]. You may return if you are having any new or concerning changes, if you feel unsafe at any time or have any other concerns. Prescriptions: No Action propranolol 20 mg tablet 20 mg PO BID Qty: 180 1RF Referrals: Miscellaneous,Doctor, [Primary Care Provider] - Stand Alone Forms: Patient Portal/API
[2024-04-24] MEDS: SODIUM CHLORIDE 0.9% 1,000 ML 1000 ML IV (00:48)
[2024-04-24] MEDS: THIAMINE 200 MG in SODIUM CHLORIDE 0.9% 100 ML 408 MG IV (00:48)
[2024-04-24] MEDS: FOLIC ACID 1 MG TABLET PO (00:51)
[2024-04-24 01:01] LABS: Add Manual Diff / Slide Review NO; Basophils Absolute Auto 0 /uL (0-100); Basophils Percent Auto 0.4 % (0-2); Eosinophils Absolute Auto 300 /uL (0-450); Eosinophils Percent Auto 5.8 % (2-4); Hematocrit 43.6 % (36-46); Hemoglobin 14.7 g/dL (12.0-16.0); Lymphocytes Absolute Auto 1800 /uL (1100-4500); Mean Corpuscular HGB Conc 33.7 % (30-36); Mean Corpuscular Hemoglobin 32.7 PG (26-34); Monocytes Absolute Auto 500 /uL (0-900); Monocytes Percent Auto 9.3 % (3-14); Neutrophils Absolute Auto 2300 /uL (1500-7000); Neutrophils Percent Auto 47.5 % (50-75); Platelet Count 218 X10^3/uL (150-400); Red Blood Cell Count 4.49 X10^6/uL (4.0-5.2); Red Cell Distribution Width 13.9 % (11.6-14.8); White Blood Cell Count 4.9 X10^3/uL (4.5-11.0)
[2024-04-24 01:04] LABS: UR Morphine/Opiate cutoff 300 Negative (Negative); Ur Creatinine Normal (Normal); Ur Specific Gravity Normal (Normal); Urine Amphetamines Negative (Negative); Urine Barbiturates Negative (Negative); Urine Benzodiazepines Negative (Negative); Urine Cocaine Negative (Negative); Urine MDMA Negative (Negative); Urine Methadone Negative (Negative); Urine Methamphetamines Negative (Negative); Urine Oxycodone Negative (Negative); Urine Phencyclidine Negative (Negative); Urine Tetrahydrocannabinol Negative (Negative); Urine Tricyclic Antidepressant Negative (Negative); Urine pH Normal (Normal)
[2024-04-24 01:13] LABS: Alanine Aminotransferase 64 IU/L (<35); Albumin 4.7 g/dL (3.5-5.0); Albumin Globulin Ratio 1.4 (1.0-2.8); Alkaline Phosphatase 62 U/L (38-126); Aspartate Aminotransferase 100 IU/L (14-36); BUN Creatinine Ratio 15.3 (6-22); Bilirubin Total 0.5 mg/dL (0.2-1.3); Blood Urea Nitrogen 9 mg/dL (7-17); Calcium 8.7 mg/dL (8.4-10.2); Carbon Dioxide 30 mmol/L (22-32); Chloride 109 mmol/L (98-107); Estimated Glomerular Filt Rate > 60 mL/min (>60); Globulin 3.4 g/dL (1.7-4.1); Glucose 94 mg/dL (70-100); HEMOLYSIS < 15 (0-50); Potassium 3.8 mmol/L (3.4-5.1); Sodium 147 mmol/L (137-145); Total Protein 8.1 g/dL (6.3-8.2)
[2024-04-24 01:34] LABS: Ethanol (ETOH) 365 mg/dL
[2024-04-24] MEDS: LORazepam 2 MG/ML INJ 1 MG IV (01:47)
[2024-04-24] MEDS: ACETAMINOPHEN 325 MG TABLET 650 MG PO (01:47)
--- NOTE | 2024-04-24 03:47 | PC.NURSE ---
Pt's boyfriend: Isaiah [phone] left to go to work around 3:15 am. Pt has her phone at bedside and can call him for follow up.
[2024-04-24] MEDS: PHENobarbital 65 MG/ML VIAL 130 MG IV (07:39)
--- NOTE | 2024-04-24 08:57 | PC.NURSE ---
[facility] called at this time requesting test results and updated vital signs. Faxing at this time.
--- NOTE | 2024-04-24 11:29 | CM.SWNOTE ---
ED REGASIFICATION PLANT OPERATOR Note: 43yo female, resident of [place], presented to the ED last evening requesting for assistance with placement at a detox/stabilization center. REGASIFICATION PLANT OPERATOR was consulted due to ETOH use and request for placement. ED staff was able to call [facility] and send clinical packet for review overnight. REGASIFICATION PLANT OPERATOR called [facility] in [place] to follow up regarding clinical packet being reviewed. It was reported by [facility] that pt has been accepted for etoh detox. REGASIFICATION PLANT OPERATOR entered room, introduced self and role. Present in the room was pt's significant other, Isaiah. REGASIFICATION PLANT OPERATOR discussed plan with pt and pt was still agreeable to plan for discharge to [facility] for detox. Pt's significant other confirmed that they can transport at discharge from ED. Plan: Pt to discharge to detox/stabilization center for ETOH detox. MYLENE Riley
== END 2024-04-24 12:28 | disposition home or self-care (01) ==
PROVIDERS: Emergency Medicine; Emergency Provider Emergency Medicine
DX: F10.90 Alcohol use, unspecified, uncomplicated (principal); Y90.8 Blood alcohol level of 240 mg/100 ml or more
CPT/HCPCS: 36415; 80053; 80305; 80320; 81003; 81025; 85025; 96365; 96375; 99284; J2060; J2560